=== PATIENT | female | born 1930 | race Caucasian/White ===

== ENCOUNTER 2016-05-28 14:00 | Outpatient (RCR) | payer MEDICARE ==
--- NOTE | 2016-05-22 13:46 | PT/OT/ST INITIAL EVALUATION ---
Department of Health and Human Services Form Approved [facility] Care Financing Administration OMB No. [id number] PLAN OF CARE/ASSESSMENT FOR OUTPATIENT REHABILITATION (Complete for Initial Claims Only) 1. LAST NAME Edvin FIRST NAME Tsering COLMENARES -- 2. ACC # [id number] 3. [facility] [id number] 4. PROVIDER NO. [id number] 5. TYPE: X PT 6. PRIOR THERAPY (Same condition) None 7. PRIMARY DX Right leg sciatica 8. SECONDARY DX Lower extremity weakness 9. ONSET DATE Approximately 1 month ago 10. REFERRAL DATE 05/07/2016 11. SOC. DATE/TIME 05/21/2016 11:00 12. PRIOR LEVEL OF FUNCTION; PERTINENT HISTORY (Prior therapy results, reason for referral.) S: The patient was referred to physical therapy by HILTON Jordan for Dr. Tejada with the diagnosis of right leg sciatica and bilateral hip flexor weakness. The patient reports that she has had an episode a little over a month ago in [place], which she got lightheaded and fainted and passed out. The patient notes that since this incident, she had undergone several tests that have all been negative. She has, however, had some pain at her right hip and leg. The patient describes the pain as sciatic-like pain that travels down the outside of her right hip, lateral knee all the way to her lateral ankle. The patient notes that she has increased pain with prolonged sitting or standing. She has some pain at night that keeps her awake. She has some difficulty getting in and out of a car. Current pain rating: She currently rates the pain to be 8/10. Diagnostic tests: Medical tests have included an MRI and EKG. Relieving factors: The patient does get some relief when using a heating pad. The patient states that she is unable to walk greater than a block and a half. Past medical history includes back surgery in the late 90s. Medication includes Lortab and a prednisone Dosepak. The patient's goal for therapy is to relieve pain. 13. INITIAL ASSESSMENT/SAFETY PRECAUTIONS/MEDICAL COMPLICATIONS (Level of function at start of care. Be specific, use objective measures, list problems.) O: APPEARANCE: The patient is a healthy looking 85-year-old female. She demonstrates slight kyphotic posture with rounded shoulders, decreased lumbar lordosis and mild posterior pelvic tilt. The patient has increased tenderness to palpation at her right glute, piriformis region, and right lateral hip that travels distally along her IT band to lateral knee and calf. RANGE OF MOTION/FLEXIBILITY: Trunk range of motion-flexion 50%, extension 75%, right side bending 70% with pain, left side bending normal limits. Right rotation 50% with pain, left rotation normal limits. Lower extremity flexibility -right hamstring 40 degrees, left 60 degrees. Right single knee to chest and piriformis flexibility were minimally limited. Left were normal limits. STRENGTH: Bilateral hip flexion 4+/5 manual muscle test, right hip abduction 4-/5 manual muscle test. Left 4+/5 manual muscle test. Knee extension 5/5 manual muscle test bilaterally. Knee flexion -right 4/5 manual muscle test, left 5/5 manual muscle test. Ankle dorsiflexion right 4/5 manual muscle test, left 5/5 manual muscle test. TODAY'S TREATMENT: Included initial evaluation followed by instruction of home exercise program for gentle stabilization and postural exercises. The treatment was ended with ultrasound to the patient's right glute piriformis region, and gentle stretching. 14. INITIAL POC: (Specify procedures, modalities, short and watermaster goals) A: The patient presents with muscle tightness and tenderness at right glute piriformis with radicular symptoms. PROGNOSIS: The patient is a good candidate for physical therapy to regain range of motion, flexibility, and strength at right lower extremity. GOALS: 1. The patient to be compliant with home exercise program in 2 weeks. 2. The patient to report 50% decrease in pain and radicular symptoms in 4 weeks. 3. The patient to demonstrate half a muscle grade improvement at right lower extremity in 6 weeks. 4. The patient to demonstrate full trunk range of motion without pain in 6 weeks. 5. The patient to report that she is able to perform normal daily activities and walk without having pain in 8 weeks. PLAN: The patient will be seen 2 times a week over the next 6 weeks. Treatment to include modalities and manual therapy to decrease pain and inflammation. We will progress the patient with range of motion, flexibility, stabilization, and light strengthening activities. We will continue to educate the patient on overall diagnosis and body mechanics when performing activities. 15. FUNCTIONAL LEVEL (End of claim period) 16. PHYSICIAN SIGNATURE ? ON FILE OR ENTER HERE: 17. DATE: I certify the need for these services furnished under this plan of care and if for partial hospitalization. 18. CERTIFICATION FROM THROUGH FORM [facility]-700
[~2016-05-28 14:00] MED LIST: ACET1TAB PO; ACET500C15 PO; APIX5TAB PO; AZAT50TA PO; DIGO125T PO; DULO30CA PO; HYDR-3702 PO; INSU300I SQ; LEVO100T PO; MAGN400T39 PO; NF-ESOM40C PO; OLME1TAB3 PO; OLME1TAB5 PO; PRED5DRO2I OD; TRIM100T PO; VIT B12
== END 2016-07-02 09:14 | disposition home or self-care (01) ==
LOC: PT 14:00
PROVIDERS: ATTEND Family Medicine
DX: M54.31 Sciatica, right side (principal); R29.898 Other symptoms and signs involving the musculoskeletal system
CPT/HCPCS: 97001; 97035; 97110; 97140; G8978; G8979; G8980

== ENCOUNTER 2016-07-28 13:45 | Outpatient (RCR) | payer MEDICARE ==
--- NOTE | 2016-07-15 13:31 | PT/OT/ST INITIAL EVALUATION ---
Department of Health and Human Services Form Approved [facility] Care Financing Administration OMB No. [id number] PLAN OF CARE/ASSESSMENT FOR OUTPATIENT REHABILITATION (Complete for Initial Claims Only) 1. LAST NAME Edvin FIRST NAME Tsering COLMENARES -- 2. ACC # [id number] 3. [facility] [id number] 4. PROVIDER NO. [id number] 5. TYPE: X PT 6. PRIOR THERAPY (Same condition) May 21 to May 28, 2016 7. PRIMARY DX Right leg sciatica 8. SECONDARY DX Hip and leg weakness 9. ONSET DATE Approximately 2-1/2 months ago. 10. REFERRAL DATE 07/10/2016 11. SOC. DATE/TIME 07/14/2016 13:00 12. PRIOR LEVEL OF FUNCTION; PERTINENT HISTORY (Prior therapy results, reason for referral.) S: The patient was referred to physical therapy by HILTON Jordan for Dr. Tejada with the diagnosis of right leg sciatica and lower extremity weakness. The patient reports that she has had this going on for approximately 2-1/2 months. The patient had started therapy in early May, but due to an illness, she discontinued. The patient reports that she had fainted in [place] approximately 3 months ago and it seems like her symptoms began after that. She has undergone several tests. They have all been negative. The patient notes that the pain travels down the outside of her right leg to her lateral knee, all the way down to the outside of her ankle. She does occasionally have symptoms to her left side similar. The patient has increased pain with prolonged sitting or standing. The pain awakes her at night. She has some difficulty getting in and out of a car or up from a low chair. The patient ambulates with a single-point cane for balance and has done this for a few years. Current pain rating is 8/10. Relieving factors: She does get some relief when using a heating pad. Past medical history includes back surgery in the late 90s. Medication includes Lortabs that she occasionally takes. The patient's goal for therapy is to relieve the pain. 13. INITIAL ASSESSMENT/SAFETY PRECAUTIONS/MEDICAL COMPLICATIONS (Level of function at start of care. Be specific, use objective measures, list problems.) O: APPEARANCE: The patient is a healthy looking 86-year-old female. She demonstrates slight kyphotic posture with rounded shoulders, decreased lumbar lordosis and mild posterior pelvic tilt. The patient has scoliotic curve with convexity at right thoracic and convexity at left lumbar region. PALPATION: The patient has tenderness to palpation at her right SI joint, right glute piriformis region, and right lateral hip region that travels distally along her IT band to her lateral knee region. Tenderness is also noted at her left glute, but not as great. ASSESSMENTS: The patient's Modified Oswestry low back score was 58%. RANGE OF MOTION/FLEXIBILITY: Trunk range of motion flexion 50%, extension 75%, right side bending 70% with pain, left side bending normal limits. Right rotation 50% with pain, left rotation normal limits. Lower extremity flexibility right hamstring 40 degrees, left 60 degrees. Right single knee to chest and piriformis flexibility were minimally limited. Left normal limites. STRENGTH: Right hip flexor 4-/5 manual muscle test, left 4+/5 manual muscle test. Right hip abduction 4-/5 manual muscle test, left 4+/5 manual muscle test. Knee extension was 5/5 manual muscle test bilaterally. Knee flexion right 4/5 manual muscle test, left 5/5 manual muscle test. Ankle dorsiflexion right 4/5 manual muscle test, left 5/5 manual muscle test. TODAY'S TREATMENT: Included initial evaluation followed by instruction of home exercise program for gentle stabilization and posture. Treatment also included ultrasound to right lumbosacral region. 14. INITIAL POC: (Specify procedures, modalities, short and lobsterman goals) A: The patient presents with lumbosacral pain with bilateral sciatica, greater on the right than left. PROGNOSIS: The patient is a good candidate for physical therapy to regain flexibility and range of motion, and progress with strengthening and stability. GOALS: 1. The patient to be compliant with home exercise program in 2 weeks. 2. The patient to report 50% decrease in radicular symptoms in 4 weeks. 3. The patient to demonstrate half a muscle grade improvement in lower extremity strength in 6 weeks. 4. The patient to demonstrate 10% decrease in modified Oswestry score in 6 weeks. 5. The patient to report that she is able to perform normal daily activities and walk with 50% less pain in 8 weeks. PLAN: The patient will be seen 2 times a week over the next 6 weeks. Treatment to include modalities and manual therapy to decrease pain and inflammation. We will progress the patient with range of motion, flexibility, stabilization, and light strengthening activities. We will continue to educate the patient on overall diagnosis and body mechanics when performing activities. 15. FUNCTIONAL LEVEL (End of claim period) 16. PHYSICIAN SIGNATURE ? ON FILE OR ENTER HERE: 17. DATE: I certify the need for these services furnished under this plan of care and if for partial hospitalization. 18. CERTIFICATION FROM THROUGH FORM [id number]
[2016-08-04] MEDS ORDERED: POTA99TA16 PO (09:57)
[2016-08-04] MEDS ORDERED: MULT-878 PO (09:57)
[2016-08-04] MEDS ORDERED: ASCO500T20 PO (09:58)
[2016-08-06] MEDS ORDERED: MTP25TSR PO (12:56)
[2016-08-24] MEDS ORDERED: OLME1TAB5 PO (09:32)
[2016-08-24] MEDS ORDERED: MTP25TSR PO (09:32)
[2016-08-24] MEDS ORDERED: TRM50T PO (10:13)
== END 2016-10-12 | disposition home or self-care (01) ==
LOC: PT 13:45
PROVIDERS: ATTEND Physician Assistant Medical
DX: M54.31 Sciatica, right side (principal); R29.898 Other symptoms and signs involving the musculoskeletal system
CPT/HCPCS: 97032; 97035; 97110; 97140; 97161; G8981; G8982

== ENCOUNTER 2016-08-03 11:47 | Observation (INO) | payer MEDICARE ==
[~2016-08-03] VITALS: Ht 170.2 cm; Wt 77.7 kg
[2016-08-03 14:01] LABS: BASOPHILS % (AUTO) 0 % (0-2); EOSINOPHILS # (AUTO) 0.1 10^3uL; EOSINOPHILS % (AUTO) 1 % (0-4); MEAN CORPUSCULAR HGB CONC 33.6 g/dL (31.0-37.0); MEAN PLATELET VOLUME 10.9 FL (6.0-9.5); MONOCYTES # (AUTO) 0.8 X10^3; MONOCYTES % (AUTO) 10 % (3-11); NEUTROPHILS # (AUTO) 5.9 X10^3; NEUTROPHILS % (AUTO) 76 % (51-67); PLATELET COUNT 281 10^3uL (150-450); WHITE BLOOD COUNT 7.81 10^3uL (4.0-11.0)
[2016-08-03 14:02] LABS: MEAN CORPUSCULAR HEMOGLOBIN 34.8 PG (26.0-34.0); MEAN CORPUSCULAR VOLUME 104 FL (80-100)
[2016-08-03 14:13] LABS: ALBUMIN 4.2 g/dL (3.4-5.0); ANION GAP 14.4 MEQ/L (3-15); CALCULATED IONIZED CALCIUM 4.1 mg/dL (3.8-4.6); TOTAL PROTEIN 7.7 g/dL (6.4-8.5)
--- NOTE | 2016-08-03 14:51 | NUR ---
RADIOLOGIST called to report ct of head was negative. was notified.
[2016-08-03 15:32] LABS: BILIRUBIN,URINE Negative (Negative); CLARITY,URINE Clear; COLOR,URINE Yellow; GLUCOSE, URINE (UA) Negative (Negative); LEUKOCYTE ESTERASE ,URINE Trace (Negative); UROBILINOGEN,URINE 0.2 mg/dL (0.2-1.0)
[2016-08-03 15:47] LABS: URINE CENTRIFUGED VOLUME 12 mL
--- NOTE | 2016-08-03 16:07 | NUR ---
NS ASSIST TO WALK PT IN HALLWAY PER DR MARCIAL ORDER. INFORMED PT ASSISTED X 2 TO TOILET APPX 1 HR AGO & ED WANTS PT WALKED FURTHER THAN THAT. CL
--- NOTE | 2016-08-03 16:10 | NUR ---
DR MARCIAL WATCHES PT WALK W/1 NS ASSIST & DOING BETTER THAN EARLIER WHEN UP TO THE TOILET. CL
[2016-08-03] MEDS ORDERED: CIPROFLOXACIN (CIPRO) 500 MG TABLET PO ONE (17:00)
[2016-08-03] MEDS ORDERED: cefTRIAXone SODIUM 1,000 MG in SODIUM CHLORIDE 50 ML IV ONE (17:20)
[2016-08-03] MEDS ORDERED: DOCUSATE SODIUM 100 MG (COLACE) CAP PO PRN (18:10)
[2016-08-03] MEDS ORDERED: PROMETHAZINE HCL INJ 12.5 MG in SODIUM CHLORIDE 25 ML IV PRN (18:10)
[2016-08-03] MEDS ORDERED: DEXTROSE ORAL GEL (GLUTOSE 40%) 15 GM TUBE PO PRN (18:10)
[2016-08-03] MEDS ORDERED: DEXTROSE 50% 25 GM/50 ML SYRINGE IV PRN (18:10)
[2016-08-03] MEDS ORDERED: ONDANSETRON 4 MG (ZOFRAN) ORAL DISSOLVE TAB PO PRN (18:10)
[2016-08-03] MEDS ORDERED: GLUCAGON EMERGENCY 1 MG/KIT IM PRN (18:10)
[2016-08-03] MEDS ORDERED: MAGNESIUM HYDROXIDE 80MG/ML (MILK OF MAGNESIA) 30 ML UDC PO PRN (18:10)
[2016-08-03] MEDS ORDERED: POLYETHYLENE GLYCOL 17 GM (MIRALAX) PACKET PO PRN (18:10)
[2016-08-03] MEDS ORDERED: MAG HYDROX/AL HYDROX/SIMETH 200-200-20/5 ML (MAG-AL PLUS) 30 ML UDC PO PRN (18:10)
[2016-08-03] MEDS ORDERED: CALCIUM CARBONATE CHEWABLE 300 MG (TUMS) TABLET PO PRN (18:10)
--- NOTE | 2016-08-03 18:50 | NUR ---
Arrives to room 314 per cart accompanied by Ambrocio HERRERA and family. Alert and oriented x 4. skin w/p/d. Resp unlabored.
--- NOTE | 2016-08-03 19:10 | NUR ---
Diabetic tray given to patient.
--- NOTE | 2016-08-03 19:27 | NUR ---
Dr. Triana at bedside.
[2016-08-03 19:30] VITALS: BP 205/100
[2016-08-03 19:32] VITALS: BP 205/100
[2016-08-03] MEDS ORDERED: SODIUM CHLORIDE FLUSH 10 ML ONE (20:58)
[2016-08-03] MEDS: INSULIN LISPRO 1 UNIT/0.01 ML (HUMALOG) DOSE SC SCH (21:00)
--- NOTE | 2016-08-03 21:00 | NUR ---
Assisted to the bathroom. Patient is weak. Has ecchymotic area on bilateral knees. Has weakness in left knee > than right. Returned to bed. Bed alarm placed on. IV all infused and dc'd. SL patent and intact. Patient does use call light when she has to go to the bathroom. Bed alarm on.
[2016-08-03] MEDS: APIXABAN 2.5 MG (ELIQUIS) TABLET PO SCH (21:55)
[2016-08-03] MEDS: INSULIN GLARGINE 1 UNIT/0.01ML (LANTUS) DOSE SC SCH (21:56)
[2016-08-03] MEDS: ACETAMINOPHEN 325 MG TAB (TYLENOL) PO PRN (22:32)
[2016-08-03] MEDS: azaTHIOprine (IMURAN) 50 MG TAB PO SCH (22:33)
--- NOTE | 2016-08-03 22:41 | NUR ---
Requests tylenol for body aches. Tylenol given.
[2016-08-03 23:57] VITALS: BP 209/105
[2016-08-04] VITALS (8 sets, daily range): BP systolic 157–209; BP diastolic 68–105
--- NOTE | 2016-08-04 | NUR ---
Patient assisted to bathroom again. Voiding without difficulty. Remains alert, yet forgetful at times. States still has some soreness in left knee. Tylenol given at HS for knee discomfort. Call light within reach. Bed alarm on.
[2016-08-04] MEDS: ACETAMINOPHEN 325 MG TAB (TYLENOL) PO PRN ×2 (04:04→09:42)
[2016-08-04 06:23] LABS: BASOPHILS % (AUTO) 0 % (0-2); EOSINOPHILS # (AUTO) 0.1 10^3uL; EOSINOPHILS % (AUTO) 1 % (0-4); LYMPHOCYTES # (AUTO) 1.1 X10^3; MEAN CORPUSCULAR HGB CONC 33.4 g/dL (31.0-37.0); MONOCYTES # (AUTO) 0.8 X10^3; MONOCYTES % (AUTO) 11 % (3-11); NEUTROPHILS # (AUTO) 5.6 X10^3; NEUTROPHILS % (AUTO) 74 % (51-67); PLATELET COUNT 259 10^3uL (150-450); WHITE BLOOD COUNT 7.63 10^3uL (4.0-11.0)
[2016-08-04] MEDS: LEVOTHYROXINE 100 MCG (LEVOTHROID) TABLET PO SCH (06:23)
[2016-08-04 06:34] LABS: ALBUMIN 3.6 g/dL (3.4-5.0); MEAN CORPUSCULAR HEMOGLOBIN 34.5 PG (26.0-34.0); MEAN CORPUSCULAR VOLUME 103 FL (80-100); PHOSPHORUS 4.2 mg/dL (2.4-4.9)
[2016-08-04] MEDS: INSULIN LISPRO 1 UNIT/0.01 ML (HUMALOG) DOSE SC SCH ×4 (06:44→20:40)
--- NOTE | 2016-08-04 06:45 | NUR ---
Patient rested well tonight. Tylenol administered at 0415 for left knee discomfort. When ambulating to the bathroom has discomfort in left knee. Patient pleasant and cooperative with cares. Call light within reach.
[2016-08-04] MEDS ORDERED: SODIUM CHLORIDE FLUSH 10 ML ONE (08:28)
--- NOTE | 2016-08-04 08:30 | NUR ---
Patient's a.m. BP is high again. Gave Hydralazine 20 mg. IV. Will recheck.
[2016-08-04] MEDS: hydrALAZINE 20 MG/ML (APRESOLINE) 1 ML VIAL IV PRN ×2 (08:31→13:14)
[2016-08-04] MEDS: NS FLUSH 10 ML PRN IV ×2 (08:40→13:15)
[2016-08-04] MEDS ORDERED: NS FLUSH 3 ML PRN IV (08:45)
[2016-08-04] MEDS ORDERED: HYDROCHLOROTHIAZIDE 25 MG (HCTZ) TAB PO SCH (09:00)
[2016-08-04] MEDS: NS FLUSH 3 ML DAILY IV SCH (09:00)
[2016-08-04] MEDS ORDERED: LOSARTAN 50 MG (COZAAR) TABLET PO SCH (09:00)
--- NOTE | 2016-08-04 09:20 | NUR ---
BP= 172/80.
--- NOTE | 2016-08-04 09:25 | NUR ---
Doctor has increased oral BP medications for this morning. Will continue to monitor.
[2016-08-04] MEDS: APIXABAN 2.5 MG (ELIQUIS) TABLET PO SCH ×2 (09:41→20:31)
[2016-08-04] MEDS: DULoxetine 30 MG (CYMBALTA) CAPSULE PO SCH (09:41)
[2016-08-04] MEDS: azaTHIOprine (IMURAN) 50 MG TAB PO SCH ×2 (09:42→20:31)
[2016-08-04] MEDS: PANTOPRAZOLE 40 MG (PROTONIX) TAB PO SCH (09:42)
[2016-08-04] MEDS: DIGOXIN 0.125 MG (LANOXIN) TAB PO SCH (09:42)
[2016-08-04] MEDS: HYDROCHLOROTHIAZIDE 25 MG (HCTZ) TAB PO SCH (09:49)
[2016-08-04] MEDS: LOSARTAN 50 MG (COZAAR) TABLET PO SCH (09:51)
--- NOTE | 2016-08-04 10:03 | NUR ---
Med Rec completed via list from Dr. Lopez office and conversation with patient and caregiver.
--- NOTE | 2016-08-04 10:40 | NUR ---
Patient has gone to radiology for x-rays of bilateral knees. She reports two falls at home in the past few weeks.
--- NOTE | 2016-08-04 14:00 | NUR ---
Discussed PRN BP medication with the patient and her daughter. they feel her anxiety may be caused by the Hydralazine she's received twice today. I discussed this with Dr. Triana and the decision was made to DC this med.
[2016-08-04] MEDS: LORazepam 0.5 MG (ATIVAN) TABLET PO PRN ×2 (15:10→21:27)
--- NOTE | 2016-08-04 15:10 | NUR ---
Gave 0.5 mg. Ativan PO for anxiety. Will continue to monitor.
[2016-08-04] MEDS ORDERED: CIPROFLOXACIN (CIPRO) 500 MG TABLET PO ONE (17:00)
[2016-08-04] MEDS ORDERED: SODIUM CHLORIDE 100 ML ONE (18:26)
[2016-08-04] MEDS: cefTRIAXone SODIUM 1,000 MG in SODIUM CHLORIDE 50 ML IV SCH (18:28)
--- NOTE | 2016-08-04 19:29 | NUR ---
Patient's anxiety is not gone but has improved with PRN medication. Family have remained at the bedside through the day.
[2016-08-04] MEDS: INSULIN GLARGINE 1 UNIT/0.01ML (LANTUS) DOSE SC SCH (20:39)
[2016-08-05] VITALS: BP 165/66
[2016-08-05 04:10] VITALS: BP 140/70
[2016-08-05] MEDS: LEVOTHYROXINE 100 MCG (LEVOTHROID) TABLET PO SCH (06:18)
--- NOTE | 2016-08-05 06:22 | NUR ---
Patient has reported some anxiety through the night, relieved by Ativan. States that she slept better tonight but was bothered by accidentally setting TABS alarm off. 1 assist throughout night, this AM seems a little more unsteady than previous and required 2 assistance for safety. No reports of pain, no needs at this time.
[2016-08-05] MEDS: INSULIN LISPRO 1 UNIT/0.01 ML (HUMALOG) DOSE SC SCH ×4 (07:26→20:48)
[2016-08-05 08:00] VITALS: BP 152/92
--- NOTE | 2016-08-05 08:32 | NUR ---
NUTRITION ASSESSMENT Level 1 Patient: Tsering Pardo Age/Sex: 86/F Date Screened: [birth year]17 Weight: 170.9#/77.7 kg Height: 68 inches Primary Diagnosis: UTI Diet Order: medium diabetic Relevant labs: Hgb A1c 6.4, TSH 5.44 Food allergies: N Nutrition Assessment Criteria Age over 80: 4 points Body Mass Index (BMI) under 19: N Admission Screening Indicates Risk? N Moderate/High Risk Diagnosis: N TPN or PPN: N NPO or clear liquid diet: N Serum Glucose <70 or >180: N/A Hgb A1c >6.7: N Total: 4 points Risk Screen: __ Patient at low nutritional risk based on available data; reevaluate in 5-7 days _X_ Patient at moderate nutritional risk based on available data; reevaluate in 3-5 days __ Patient at high nutritional risk; complete Nutrition Assessment within 48 hours of admission. Comments: Weight has been stable; pt. intentionally lost weight after diabetes dx. in 2014 (weighed 183# in October 2014, 173# in December 2014, and maintained it at 173# in 2015). Eating well at 100%. Noted height was entered incorrectly in EMR; should be 68 inches. Will reassess as documented above.
[2016-08-05] MEDS: PANTOPRAZOLE 40 MG (PROTONIX) TAB PO SCH (08:47)
[2016-08-05] MEDS: DIGOXIN 0.125 MG (LANOXIN) TAB PO SCH (08:47)
[2016-08-05] MEDS: ACETAMINOPHEN 325 MG TAB (TYLENOL) PO PRN ×3 (08:47→19:52)
[2016-08-05] MEDS: DULoxetine 30 MG (CYMBALTA) CAPSULE PO SCH (08:47)
[2016-08-05] MEDS: APIXABAN 2.5 MG (ELIQUIS) TABLET PO SCH ×2 (08:47→20:55)
[2016-08-05] MEDS: azaTHIOprine (IMURAN) 50 MG TAB PO SCH ×2 (08:48→20:55)
[2016-08-05] MEDS: LOSARTAN 50 MG (COZAAR) TABLET PO SCH (08:48)
[2016-08-05] MEDS: NS FLUSH 3 ML DAILY IV SCH (08:49)
[2016-08-05] MEDS: HYDROCHLOROTHIAZIDE 25 MG (HCTZ) TAB PO SCH (08:49)
[2016-08-05] MEDS ORDERED: MAGNESIUM OXIDE 400 MG (MAG-OX) TAB PO SCH (09:00)
--- NOTE | 2016-08-05 10:54 | NUR ---
Presented the [employer] form to Pt. and her daughter in law. Pt. verbalized understanding and signed the form. A copy was given to the Pt. and the original was placed in the chart. Pt. reported she lives at home alone. She is open to home health services and also open to assisted living. Pt. daughter in law was not aware Pt. was open to assisted living. She stated Pt. would prefer to be hoe is she is able to manage at home. SW also discussed respite care at a facility and private caregiving agencies. A list of home health agencies and assisted living facilities was provided to Pt. SW asked them to let SW know if they have any questions.
[2016-08-05 12:00] VITALS: BP 168/88
[2016-08-05 16:00] VITALS: BP 162/98
--- NOTE | 2016-08-05 16:06 | NUR ---
Dr. Tinoco notified of BP which is trending up.
[2016-08-05] MEDS ORDERED: meTOprolol TARTRATE 25 MG (LOPRESSOR) TABLET PO ONE (16:10)
--- NOTE | 2016-08-05 16:15 | NUR ---
Tylenol given for knee pain.
[2016-08-05] MEDS: cefTRIAXone SODIUM 1,000 MG in SODIUM CHLORIDE 50 ML IV SCH (17:37)
[2016-08-05 19:47] VITALS: BP 142/82
--- NOTE | 2016-08-05 19:52 | NUR ---
Resting in bed. Having pain in left knee. States that physical therapy worked with her today and knee is more sore. Tylenol 650 mg administered for pain. Assisted patient to the bathroom, using gait belt. Patient uses walker and assist of two. Follows commands well, but appears much weaker than she was a few days ago. Acts as if knee is going to give out. Encouragement given numerous times. Skin warm and dry. Color pale. Daughter in room. Bed alarm on for safety.
[2016-08-05] MEDS: LORazepam 0.5 MG (ATIVAN) TABLET PO PRN (20:55)
[2016-08-05] MEDS: INSULIN GLARGINE 1 UNIT/0.01ML (LANTUS) DOSE SC SCH (20:56)
[2016-08-06 01:01] VITALS: BP 152/89
[2016-08-06] MEDS ORDERED: LORazepam 2 MG/ML (ATIVAN) 1 ML VIAL IV PRN (01:35)
[2016-08-06 06:11] LABS: BASOPHILS % (AUTO) 0 % (0-2); EOSINOPHILS # (AUTO) 0.1 10^3uL; EOSINOPHILS % (AUTO) 1 % (0-4); LYMPHOCYTES # (AUTO) 0.9 X10^3; MEAN CORPUSCULAR HGB CONC 34.4 g/dL (31.0-37.0); MEAN PLATELET VOLUME 10.9 FL (6.0-9.5); MONOCYTES # (AUTO) 0.9 X10^3; MONOCYTES % (AUTO) 11 % (3-11); NEUTROPHILS # (AUTO) 5.9 X10^3; NEUTROPHILS % (AUTO) 76 % (51-67); PLATELET COUNT 264 10^3uL (150-450); WHITE BLOOD COUNT 7.79 10^3uL (4.0-11.0)
[2016-08-06 06:17] LABS: MEAN CORPUSCULAR HEMOGLOBIN 35.2 PG (26.0-34.0); MEAN CORPUSCULAR VOLUME 102 FL (80-100)
[2016-08-06] MEDS: LEVOTHYROXINE 100 MCG (LEVOTHROID) TABLET PO SCH (06:29)
[2016-08-06] MEDS: INSULIN LISPRO 1 UNIT/0.01 ML (HUMALOG) DOSE SC SCH ×2 (06:30→11:30)
--- NOTE | 2016-08-06 06:30 | NUR ---
Patient rested at short intervals tonight. Try's to get out of bed by herself and sets alarms off. Is unsteady. When ambulating with the walker she acts like she is going to fall. Patient has weakness in the left knee, and when ambulating short distances, needs constant reminders to keep walking and to look up and watch where she is trying to go. Gait belt used every time patient has been ambulating. Again, appears weaker today, then she did a few days ago. bed alarm for safety. Tabs alarm also. Call light within reach, yet she does not always use it.
[2016-08-06 06:52] LABS: ALBUMIN 4.1 g/dL (3.4-5.0); ANION GAP 15.1 MEQ/L (3-15); MAGNESIUM* 1.8 mg/dL (1.6-2.3); PHOSPHORUS 4.5 mg/dL (2.4-4.9)
[2016-08-06 07:21] VITALS: BP 184/105
--- NOTE | 2016-08-06 08:07 | NUR ---
Visited with Pt. daughter, Deedee, by phone. She stated they are planning for Pt. to return home with home health services through [employer]. She would like them to help Pt. with her ADL's and provide PT. Deedee reported family is also looking into a company similar to [employer] to provide services to Pt. Deedee has also contacted [employer] and they may be able to add her to their route in the meantime family will help Pt. with meals. They have a neighbor of Pt. they may have check in on Pt. at home as well as family will check on her daily. ESEQUIEL reviewed other resources available to them if they were interested such as paying out of pocket for skilled care, respite care at an assisted living facility, transitioning to assisted living and private caregivers. ESEQUIEL asked Deedee to let ESEQUIEL know if any of these plans changed and if not then ESEQUIEL would help set up home health services upon discharge.
[2016-08-06 08:31] VITALS: BP 180/80
[2016-08-06] MEDS ORDERED: meTOprolol TARTRATE 25 MG (LOPRESSOR) TABLET PO ONE (09:25)
[2016-08-06] MEDS: ACETAMINOPHEN 325 MG TAB (TYLENOL) PO PRN (10:26)
[2016-08-06] MEDS: HYDROCHLOROTHIAZIDE 25 MG (HCTZ) TAB PO SCH (10:27)
[2016-08-06] MEDS: DIGOXIN 0.125 MG (LANOXIN) TAB PO SCH (10:27)
[2016-08-06] MEDS: azaTHIOprine (IMURAN) 50 MG TAB PO SCH (10:27)
[2016-08-06] MEDS: PANTOPRAZOLE 40 MG (PROTONIX) TAB PO SCH (10:27)
[2016-08-06] MEDS: APIXABAN 2.5 MG (ELIQUIS) TABLET PO SCH (10:27)
[2016-08-06] MEDS: LOSARTAN 50 MG (COZAAR) TABLET PO SCH (10:28)
[2016-08-06] MEDS: DULoxetine 30 MG (CYMBALTA) CAPSULE PO SCH (10:28)
[2016-08-06] MEDS: NS FLUSH 3 ML DAILY IV SCH (10:28)
[2016-08-06 11:50] VITALS: BP 150/80
--- NOTE | 2016-08-06 14:58 | NUR ---
DISCHARGE INSTRUCTIONS GIVEN TO PATIENT AND HER DAUGHTER. QUESTIONS ANSWERED. PHARMACY SPOKE WITH THEM ABOUT NEW MED. DAUGHTER STATES [facility] ARE READY FOR PATIENT. NO FURTHER QUESTIONS.
--- NOTE | 2016-08-06 15:20 | NUR ---
DISMISSED PER W/C ACCOMPANIED BY FAMILY AND NAOMY DO. ALERT AND ORIENTED X4, SKIN W/P/D, RESP REG AND UNLABORED.
== END 2016-08-06 15:20 | disposition home or self-care (01) ==
LOC: ED 11:50 → MED/SURG 17:01
PROVIDERS: ADMIT Internal Medicine; ATTEND Internal Medicine
DX: N39.0 Urinary tract infection, site not specified (principal); S06.0X0A Concussion without loss of consciousness, initial encounter; E86.0 Dehydration; E03.9 Hypothyroidism, unspecified; E11.9 Type 2 diabetes mellitus without complications; I48.91 Unspecified atrial fibrillation; G89.29 Other chronic pain; S80.02XA Contusion of left knee, initial encounter; S80.01XA Contusion of right knee, initial encounter; E11.22 Type 2 diabetes mellitus with diabetic chronic kidney disease; I12.9 Hypertensive chronic kidney disease with stage 1 through stage 4 chronic kidney disease, or unspecified chronic kidney disease; N18.9 Chronic kidney disease, unspecified; W18.2XXA Fall in (into) shower or empty bathtub, initial encounter; Z91.81 History of falling
CPT/HCPCS: 36415; 70450; 71020; 73564; 80053; 80069; 81003; 81015; 82550; 83036; 83735; 84443; 85025; 85610; 85730; 87077; 87088; 87186; 96361; 96366; 96374; 96375; 96376; 97110; 97116; 97166; 99285; A9270; G0378; G8987; G8988; J0360; J0696; J1815; J7030; J7500; 99218; 99284

== ENCOUNTER → 2016-08-03 | Outpatient (CLI) | payer MEDICARE | LOC: EMS 11:45 | PROVIDERS: ATTEND Emergency Medicine | DX: R53.1 Weakness (principal); R29.6 Repeated falls ==

== ENCOUNTER 2016-08-23 16:09 | Observation (INO) | payer MEDICARE ==
[~2016-08-23] VITALS: Ht 170.2 cm; Wt 76.9 kg
--- NOTE | 2016-08-23 18:00 | NUR ---
Patient is weak and ataxic when up to toilet. Requires assistance x1.
--- NOTE | 2016-08-23 18:00 | NUR ---
Called [facility] and requested to have the cutting and boning supervisor DrKaur Ryan paged.
--- NOTE | 2016-08-23 18:25 | NUR ---
Called [facility], asked to have paged again
--- NOTE | 2016-08-23 18:33 | NUR ---
Dr Kelley returns call, on phone with Dr. Carson.
[2016-08-23] MEDS ORDERED: ACETAMINOPHEN 500 MG TAB (TYLENOL) PO ONE (18:55)
[2016-08-23 19:38] LABS: BASOPHILS % (AUTO) 0 % (0-2); EOSINOPHILS % (AUTO) 0 % (0-4); LYMPHOCYTES # (AUTO) 1.1 X10^3; MEAN CORPUSCULAR HGB CONC 34.2 g/dL (31.0-37.0); MEAN PLATELET VOLUME 11.3 FL (6.0-9.5); MONOCYTES % (AUTO) 8 % (3-11); NEUTROPHILS # (AUTO) 10.5 X10^3; NEUTROPHILS % (AUTO) 83 % (51-67); PLATELET COUNT 235 10^3uL (150-450); WHITE BLOOD COUNT 12.63 10^3uL (4.0-11.0)
[2016-08-23 19:42] LABS: MEAN CORPUSCULAR HEMOGLOBIN 34.7 PG (26.0-34.0); MEAN CORPUSCULAR VOLUME 101 FL (80-100)
[2016-08-23 19:44] LABS: ALBUMIN 4.1 g/dL (3.4-5.0); ANION GAP 14.5 MEQ/L (3-15); CALCULATED IONIZED CALCIUM 4.1 mg/dL (3.8-4.6); TOTAL PROTEIN 7.6 g/dL (6.4-8.5)
--- NOTE | 2016-08-23 20:15 | NUR ---
Patient arrives to floor and walks with one assistance to bed and bathroom. Reports that hand is throbbing but states that her pain is controlled with the tylenol she took prior to coming to the floor. See admission assessment part 1 and 2. Will continue to monitor.
[2016-08-23 20:38] VITALS: BP 122/76
[2016-08-23] MEDS ORDERED: ONDANSETRON 4 MG (ZOFRAN) ORAL DISSOLVE TAB PO PRN (20:45)
[2016-08-23] MEDS ORDERED: ACETAMINOPHEN 325 MG TAB (TYLENOL) PO PRN (20:45)
[2016-08-23] MEDS ORDERED: ACETAMINOPHEN/DIPHENHYDRAMINE 500/25 MG (TYLENOL PM) TABLET PO PRN (20:55)
[2016-08-23] MEDS ORDERED: APIXABAN 5 MG PO SCH (21:00)
[2016-08-23 21:04] VITALS: BP 122/76
[2016-08-23] MEDS ORDERED: LORazepam 0.5 MG (ATIVAN) TABLET PO PRN (21:10)
[2016-08-23] MEDS ORDERED: APIXABAN 2.5 MG (ELIQUIS) TABLET PO ONE (21:56)
[2016-08-23] MEDS: FAMOTIDINE 20 MG (PEPCID) TABLET PO SCH (22:06)
[2016-08-23] MEDS ORDERED: INSULIN GLARGINE 1 UNIT/0.01ML (LANTUS) DOSE SC ONE (22:33)
[2016-08-23 23:44] VITALS: BP 137/71
[2016-08-24 03:16] LABS: BILIRUBIN,URINE Negative (Negative); CLARITY,URINE Clear; COLOR,URINE Yellow; GLUCOSE, URINE (UA) Negative (Negative); LEUKOCYTE ESTERASE ,URINE 1+ (Negative); UROBILINOGEN,URINE 0.2 mg/dL (0.2-1.0)
[2016-08-24 03:53] LABS: RBC,URINE 0-2 /HPF; URINE CENTRIFUGED VOLUME 12 mL
--- NOTE | 2016-08-24 06:15 | NUR ---
Patient resting in bed with eyes closed at this time. No needs at this time.
--- NOTE | 2016-08-24 07:40 | NUR ---
Patient resting in bed upon shift assessment. Arouses easily to verbal stimuli. Alert and oriented X3. Neuro check WNL. Patient reports right wrist/hand pain rated 6/10 on pain scale. PRN Ultram provided. Right wrist with trace edema noted. Denies headache, blurred vision, or SOA. Ambulates to chair for breakfast with standby assist, steady gate. HR irregular. Lung sounds CTAB. Updated on plan of care for shift including use of ice and pain medication for pain management. Call light in reach.
[2016-08-24 07:57] VITALS: BP 109/63
[2016-08-24] MEDS: FAMOTIDINE 20 MG (PEPCID) TABLET PO SCH (08:36)
[2016-08-24] MEDS ORDERED: APIXABAN 2.5 MG (ELIQUIS) TABLET PO SCH (09:35)
--- NOTE | 2016-08-24 09:44 | NUR ---
MED REC COMPLETE--current med list obtained from external med history application and discharge med list from patient's previous admission (08/03/16-08/06/16).
--- NOTE | 2016-08-24 10:18 | NUR ---
Visited with Pt. and her daughter, Fuentes. Explained that Pt. has been admitted as observation and therefore would not be eligible for skilled care. Fuentes explained Pt. has been home for a few days and has been doing well. They have a family friend that checks in on her during the day, [employer] and home health services for Pt. ESEQUIEL explained they could go home and continue with these services, they could return to [facility] for continued respite care or they could get skilled care but this would be an out of pocket expense. Fuentes thanked ESEQUIEL for the information and stated they would discuss these options.
--- NOTE | 2016-08-24 12:17 | NUR ---
Pt. felt to be unsafe to return home. Deedee would like Pt. to go back to [facility] for further respite care. [facility] came to assess Pt. and are okay admitting Pt. to their facility. They will obtain orders from Dr. Lopez's office and let SW know when they have these orders and Pt. will be okay to be discharged to their facility.
--- NOTE | 2016-08-24 14:58 | NUR ---
Discharge counseling complete--reviewed new medications with patient and patient's daughter. Supplied patient with list.
--- NOTE | 2016-08-24 15:02 | NUR ---
Discharge order received. NO IV access noted. Instructions provided to patient and daughter with verbal and written understanding expressed. Dismissed via wheelchair to private car. No further needs.
[2016-08-24] MEDS ORDERED: INSULIN GLARGINE 1 UNIT/0.01ML (LANTUS) DOSE SC SCH (21:00)
== END 2016-08-24 15:00 | disposition home or self-care (01) ==
LOC: ED 16:11 → MED/SURG 19:12
PROVIDERS: ADMIT Internal Medicine; ATTEND Internal Medicine
DX: S52.501A Unspecified fracture of the lower end of right radius, initial encounter for closed fracture (principal); R53.1 Weakness; I10 Essential (primary) hypertension; E11.9 Type 2 diabetes mellitus without complications; I48.91 Unspecified atrial fibrillation; M79.7 Fibromyalgia; M19.90 Unspecified osteoarthritis, unspecified site; Z79.82 Long term (current) use of aspirin; Z79.02 Long term (current) use of antithrombotics/antiplatelets; Z79.4 Long term (current) use of insulin; Z91.81 History of falling; W01.198A Fall on same level from slipping, tripping and stumbling with subsequent striking against other object, initial encounter
CPT/HCPCS: 36415; 70450; 73110; 80053; 80162; 81003; 81015; 85025; 87088; 99284; A9270; L3908; 87077; 87186; 99218; 99283

== ENCOUNTER → 2016-08-23 | Outpatient (CLI) | payer MEDICARE | LOC: EMS 16:08 | PROVIDERS: ATTEND Emergency Medicine | DX: M25.531 Pain in right wrist (principal); W01.198A Fall on same level from slipping, tripping and stumbling with subsequent striking against other object, initial encounter; Y93.E5 Activity, floor mopping and cleaning; Y92.000 Kitchen of unspecified non-institutional (private) residence as the place of occurrence of the external cause ==

== ENCOUNTER → 2016-08-25 | Outpatient (REF) | payer MEDICARE ==
[2016-08-25 14:21] LABS: BILIRUBIN,URINE Negative (Negative); CLARITY,URINE Cloudy; COLOR,URINE Yellow; GLUCOSE, URINE (UA) Negative (Negative); LEUKOCYTE ESTERASE ,URINE Trace (Negative); PH,URINE 5.5 (5.0 - 8.0); UROBILINOGEN,URINE 0.2 mg/dL (0.2-1.0)
[2016-08-25 14:22] LABS: URINE CENTRIFUGED VOLUME 12 mL
[2016-08-25 14:26] LABS: RBC,URINE 0-2 /HPF
== END ==
LOC: LAB 13:57
PROVIDERS: ATTEND Family Medicine
DX: R41.0 Disorientation, unspecified (principal)
CPT/HCPCS: 81003; 81015

== ENCOUNTER → 2016-08-27 | Outpatient (CLI) | payer MEDICARE | LOC: RAD 11:01 | PROVIDERS: ATTEND Nurse Practitioner | DX: S62.101A Fracture of unspecified carpal bone, right wrist, initial encounter for closed fracture (principal); X58.XXXA Exposure to other specified factors, initial encounter | CPT/HCPCS: 73100 ==

== ENCOUNTER → 2016-09-15 | Outpatient (REF) | payer MEDICARE ==
[~2016-09-15] MED LIST changes: +ASCO500T20 PO; +MTP25TSR PO; +MULT-878 PO; +POTA99TA16 PO; +TRM50T PO
[2016-09-15 11:40] LABS: BILIRUBIN,URINE Negative (Negative); CLARITY,URINE Turbid; COLOR,URINE Yellow; GLUCOSE, URINE (UA) Negative (Negative); LEUKOCYTE ESTERASE ,URINE 3+ (Negative); UROBILINOGEN,URINE 0.2 mg/dL (0.2-1.0)
[2016-09-15 13:09] LABS: RBC,URINE 50-100 /HPF; URINE CENTRIFUGED VOLUME 12 mL
== END ==
LOC: LAB 11:29
PROVIDERS: ATTEND Family Medicine
DX: R30.0 Dysuria (principal); R82.99 Other abnormal findings in urine
CPT/HCPCS: 81003; 81015; 87077; 87088; 87186

== ENCOUNTER → 2016-09-25 | Outpatient (REF) | payer MEDICARE ==
[2016-09-25 08:49] LABS: BILIRUBIN,URINE Negative (Negative); CLARITY,URINE Clear; COLOR,URINE Yellow; GLUCOSE, URINE (UA) Negative (Negative); LEUKOCYTE ESTERASE ,URINE Negative (Negative); UROBILINOGEN,URINE 0.2 mg/dL (0.2-1.0)
== END ==
LOC: LAB 08:20
PROVIDERS: ATTEND Family Medicine
DX: N39.0 Urinary tract infection, site not specified (principal)
CPT/HCPCS: 81003

== ENCOUNTER 2016-10-07 12:57 | Emergency (ER) | payer MEDICARE ==
[~2016-10-07] VITALS: Ht 170.2 cm; Wt 177.0 kg
--- NOTE | 2016-10-07 13:55 | NUR ---
[facility] STAFF BACK TO TO TALK WITH DAUGHTER OF PT. THEY STATE WITNESSED FALL. PT HAD PUT WALKER DOWN OFF OF CURB, TURNED TO WARN OTHERS OF CURB & STRONG WIND CAME UP CATCHING WALKER & PT CAUSING PT TO SIT DOWN TO CURB/CONCRETE GENTLY & TO PT RT SIDE. PT WAS SEEN HOLDING HER HEAD UP WHEN SHE WENT DOWN NOT STRIKING EITHER HEAD OR BACK. CL
--- NOTE | 2016-10-07 14:06 | NUR ---
PT GLASSES TO [facility] WITH STAFF & ALSO HER WALKER. CL
--- NOTE | 2016-10-07 14:26 | Diagnostic Imaging Report ---
PROCEDURE: CT thoracic spine without contrast. TECHNIQUE: Multiple axial computerized tomography images were obtained from the base of the thoracic spine to the vertex without intravenous contrast. INDICATION: Patient fell 2-3 hours ago, complaining of mid back pain. COMPARISON STUDY: Plain films of the chest from July. FINDINGS: Mild scoliosis and osteopenia are present. There are no fractures or subluxations. No stenosis is identified. The surrounding soft tissues appear normal. Arteriosclerosis is present. Visualized portions of the ribs appear normal. The visualized portions of the lungs are clear. IMPRESSION: There are no acute findings. Dictated by: Dictated on workstation # [id number]
--- NOTE | 2016-10-07 15:18 | NUR ---
PT DAUGHTER STATES SHE WILL HAVE TO GO GET PT A NEW HEATING PAD & TAKE IT TO CARE FACILITY. FACILITY STAFF STATED THEY WILL ASSIST PT DAUGHTER IN GETTING PT OUT OF FAMILY VEHICLE & INTO FACILITY UPON ARRIVAL. CL
[2016-10-07 20:40] VITALS: BP 132/70
== END 2016-10-07 15:35 | disposition home or self-care (01) ==
LOC: EDUNIT# 12:57 → ED 12:59
DX: G89.11 Acute pain due to trauma (principal); M54.6 Pain in thoracic spine; W10.1XXA Fall (on)(from) sidewalk curb, initial encounter; Z91.81 History of falling; Y92.511 Restaurant or cafe as the place of occurrence of the external cause; Y99.8 Other external cause status
CPT/HCPCS: 72128; 99282; 99283

== ENCOUNTER → 2016-10-07 | Outpatient (CLI) | payer MEDICARE | LOC: EMS 12:48 | PROVIDERS: ATTEND Emergency Medicine | DX: Z04.3 Encounter for examination and observation following other accident (principal); W10.8XXA Fall (on) (from) other stairs and steps, initial encounter; Y92.511 Restaurant or cafe as the place of occurrence of the external cause ==

== ENCOUNTER → 2016-10-15 | Outpatient (REF) | payer MEDICARE ==
[2016-10-15 16:19] LABS: BILIRUBIN,URINE Negative (Negative); CLARITY,URINE Cloudy; COLOR,URINE Yellow; GLUCOSE, URINE (UA) Negative (Negative); LEUKOCYTE ESTERASE ,URINE 2+ (Negative); UROBILINOGEN,URINE 0.2 mg/dL (0.2-1.0)
[2016-10-15 16:26] LABS: URINE CENTRIFUGED VOLUME 12 mL
== END ==
LOC: LAB 15:45
PROVIDERS: ATTEND Family Medicine
DX: R82.99 Other abnormal findings in urine (principal)
CPT/HCPCS: 81003; 81015; 87088

== ENCOUNTER → 2016-10-19 | Outpatient (CLI) | payer MEDICARE | LOC: EMS 08:34 | DX: Z53.20 Procedure and treatment not carried out because of patient's decision for unspecified reasons (principal) ==

== ENCOUNTER 2016-10-28 02:36 | Inpatient (IN) | payer MEDICARE ==
[~2016-10-28] VITALS: Ht 170.2 cm; Wt 79.8 kg
[2016-10-28] VITALS (7 sets, daily range): BP systolic 155–188; BP diastolic 87–97
[~2016-10-28 02:36] MED LIST changes: -AC325T PO; -AMOX-358 PO; -ASP81CT PO; -BSC10SU PR; -DOCU100C8 PO; -HYDR12.56 PO; -LEVO125T70 PO; -OLME1TAB42 PO; -ONDAN4ODT PO; -POLY17PO2 PO
[2016-10-28] MEDS ORDERED: SODIUM CHLORIDE FLUSH 3 ML SYR IV PRN (02:55)
[2016-10-28] MEDS ORDERED: SODIUM CHLORIDE FLUSH 10 ML SYR IV PRN (02:55)
[2016-10-28 03:42] LABS: MEAN CORPUSCULAR HEMOGLOBIN 35.3 PG (26.0-34.0); MEAN CORPUSCULAR VOLUME 106 FL (80-100)
[2016-10-28 03:43] LABS: BASOPHILS % (AUTO) 0 % (0-2); EOSINOPHILS % (AUTO) 1 % (0-4); LYMPHOCYTES # (AUTO) 1.2 X10^3; MEAN CORPUSCULAR HGB CONC 33.2 g/dL (31.0-37.0); MEAN PLATELET VOLUME 10.8 FL (6.0-9.5); MONOCYTES # (AUTO) 0.8 X10^3; MONOCYTES % (AUTO) 11 % (3-11); NEUTROPHILS # (AUTO) 5.4 X10^3; NEUTROPHILS % (AUTO) 71 % (51-67); PLATELET COUNT 289 10^3uL (150-450)
[2016-10-28 03:44] LABS: EOSINOPHILS # (AUTO) 0.1 10^3uL
[2016-10-28 03:45] LABS: BILIRUBIN,URINE Negative (Negative); CLARITY,URINE Clear; COLOR,URINE Yellow; GLUCOSE, URINE (UA) Negative (Negative); LEUKOCYTE ESTERASE ,URINE 1+ (Negative); UROBILINOGEN,URINE 0.2 mg/dL (0.2-1.0)
[2016-10-28 03:49] LABS: ANION GAP 11.9 MEQ/L (3-15)
[2016-10-28 03:50] LABS: ALBUMIN 3.9 g/dL (3.4-5.0); CALCULATED IONIZED CALCIUM 4.2 mg/dL (3.8-4.6); TOTAL PROTEIN 7.3 g/dL (6.4-8.5)
[2016-10-28 03:57] LABS: URINE CENTRIFUGED VOLUME 12 mL
[2016-10-28 04:00] LABS: RBC,URINE 0-2 /HPF
[2016-10-28 04:34] LABS: CLARITY,URINE Clear; COLOR,URINE Yellow
[2016-10-28 04:35] LABS: BILIRUBIN,URINE Negative (Negative); GLUCOSE, URINE (UA) Negative (Negative); LEUKOCYTE ESTERASE ,URINE Trace (Negative); URINE CENTRIFUGED VOLUME 12 mL; UROBILINOGEN,URINE 0.2 mg/dL (0.2-1.0)
[2016-10-28 04:38] LABS: RBC,URINE 0-2 /HPF
[2016-10-28] MEDS ORDERED: AMOX-358 PO (05:00)
[2016-10-28] MEDS ORDERED: AMOXICILLIN/CLAVULANATE 875MG-125MG (AUGMENTIN) TABLET PO ONE (05:05)
--- NOTE | 2016-10-28 05:16 | NUR ---
Pt was given discharge instruction. Attempted to assist into wheelchair, pt unable to bear weight on left leg and leans to right side while sitting. Family concerned about taking pt home. Dr. Delgado notified. Pt will be admitted.
[2016-10-28] MEDS ORDERED: POLYETHYLENE GLYCOL 17 GM (MIRALAX) PACKET PO PRN (05:30)
[2016-10-28] MEDS ORDERED: MAG HYDROX/AL HYDROX/SIMETH 200-200-20/5 ML (MAG-AL PLUS) 30 ML UDC PO PRN (05:30)
[2016-10-28] MEDS ORDERED: BISACODYL 10 MG SUPP (DULCOLAX) PR PRN (05:30)
[2016-10-28] MEDS ORDERED: ONDANSETRON 4 MG (ZOFRAN) ORAL DISSOLVE TAB PO PRN (05:30)
[2016-10-28] MEDS ORDERED: DOCUSATE SODIUM 100 MG (COLACE) CAP PO PRN (05:30)
[2016-10-28] MEDS ORDERED: GLUCAGON EMERGENCY 1 MG/KIT IM PRN (05:40)
[2016-10-28] MEDS ORDERED: DEXTROSE 50% 25 GM/50 ML SYRINGE IV PRN (05:40)
[2016-10-28] MEDS ORDERED: DEXTROSE ORAL GEL (GLUTOSE 40%) 15 GM TUBE PO PRN (05:40)
--- NOTE | 2016-10-28 05:45 | History and Physical (E) ---
History & Physical Admission Details Admit Date/Time 10-28-16 8477 Primary Care Provider Luis Fernando Lopez MD Subjective CC left sided weakness History of Present Illness 86 year old WF presented To the emergency room this evening for left-sided arm and leg weakness and left arm and face paresthesias She presented around midnight weakness that has worse around 7:45 PM. Currently Living at assisted living, she had a fall in July where she broke her right wrist, at that time she was not told that she had a stroke. It left her relatively disabled and she lost independent status. Reportedly her last known well time was at 3: 30 PM this afternoon. patient's daughters are at the bedside 1 of whom is a nurse and previous staff development coordinator, she states it wasn't out of the question for her to have some mild left-sided leg weakness but when her arm was involved and she was unable to walk this was definitely new and different. Her blood pressure and sugars have been relatively well controlled, but this evening in the emergency room her blood pressure did get as high as 10/102. The latest was 188/95, and earlier in the emergency room as well as 112/85. She does have a history of atrial fibrillation along with diabetes. She's been taking her Eliquis as prescribed. NIH scale in ER was 5 She doesn't know the last time she had an echo, does not have any history of congestive heart failure. She doesn't remember having a carotid ultrasound. Was told there was some evidence of old strokes on CT scan by the emergency room doctor. She denies headache, she denies any visual disturbances. She denies any slurring of her speech. Her daughter did note that her face was in a scowl most of the sudeep but better now, maybe a bit of droop to the right but not really a droop. she denies any cough or problems with shortness of breath or chest pain. No orthopnea or PND. She denies nausea vomiting abdominal pain. The last bowel movement was Wednesday morning and was normal. She denies any dysuria or hematuria. She has been battling urinary infections and had an enterococcal urinary infection recently. She denies any peripheral edema. She is quite claustrophobic, if she needed to have an MRI she would need to be sedated. PMH Atrial fibrillation She sees cardiology in [place] Diabetes mellitus type 2, currently receiving insulin therapy Hypertension "fibromyalgia" For which she takes azathioprine, she previously been on hydroxy work when that was ineffective. Her solar energy advisor in [place]. stage III kidney disease, she sees a construction craft laborer Hypothyroidism [facility] hysterectomy, cholecystectomy 2000, coronary angiography 1990, right knee arthroscopy She had back surgery [place] for her sciatica that relieved the pressure of a disc that failed FH n/c based on age SH She is , she lives in an assisted living facility has had home health nursing visiting with her. He smoked a small amount 15 years ago, she only occasionally drinks wine, he wishes to be DO NOT RESUSCITATE, her daughter the bedside is her DURABLE POWER [employer]. Allergies: Coded Allergies: Sulfa (Sulfonamide Antibiotics) (Verified Allergy, Unknown, 10/28/16) Home Medications Summary insulin lantus 35 units HS 500 mg twice a day Eliquis 5 mg BID Benicar HCTZ 40/25 1 daily Digoxin 125 g daily Magnesium oxide 400 mg daily Lantus 35 units at bedtime Tylenol PM Multivitamin Calcium gluconate 99 mg daily Vit c 1000 milligrams twice a day levothyroxine 100 g daily Duloxetine 30 mg daily Nexium 40 mg daily Review of Systems CONSTITUTION: HEENT: No change in vision or hearing. No sores in mouth, sore throat. CV: No chest pain, palpitations. PULM: No cough, shortness of breath, difficulty breathing. GI: No nausea, vomiting, constipation, or diarrhea. No blood in stool. : No dysuria. No blood in urine. MS: No new muscle or joint aches and pains. NEURO: SEE HPI INTEG: No rashes, lesions, or sores. ENDO: No heat or cold intolerance. No polydipsia or polyuria. HEME/LYMPH: No easy bruising or bleeding. No swollen glands. PSYCH: No change in mood or behavior. Objective Vital Signs Date Time Temp Pulse Resp B/P Pulse Ox O2 Delivery O2 Flow Rate FiO2 10/28/16 02:51 98.1 88 20 151/87 96 Room Air Physical Exam Physical Exam General--Awake and alert. No distress. HEENT--Normocephalic. MMM in oral cavity. Lungs--Clear to auscultation bilaterally. Nonlabored respirations. Heart--RRR. No murmurs. Abdomen--Normal bowel sounds. Soft. Nondistended. Nontender. Extremities--No edema Neuro: left leg weaker than right. Her left arm is ataxic compared to the right. I don't see any facial asymmetry. Her speech is fluent. She is alert and oriented 3. She is exceedingly pleasant. Laboratory Results Past 24 Hrs 10/28/16 03:18: Activated Partial Thromboplast Time 34.3, Alanine Aminotransferase (ALT/SGPT) 21 , Albumin 3.9, Albumin/Globulin Ratio 1.147, Alkaline Phosphatase 64, Anion Gap 11.9, Aspartate Amino Transf (AST/SGOT) 24, BUN/Creatinine Ratio 23, Basophils # (Auto) 0.0, Basophils (%) (Auto) 0, Blood Urea Nitrogen 18, Calcium Level 9.6 , Calcium/Ionized Calcium Ratio 4.2, Calculated Osmolality 273, Carbon Dioxide Level 29, Chloride Level 98, Creatine Kinase MB 1.1, Creatinine 0.79, Eosinophils # (Auto) 0.1, Eosinophils (%) (Auto) 1, Estimat Glomerular Filtration Rate 83.9, Estimated GFR (Non- 69.3, Glucose Level 145, Hematocrit 35.80, Hemoglobin 11.9, Lymphocytes # (Auto) 1.2, Lymphocytes (% ) (Auto) 16, Mean Corpuscular Hemoglobin 35.3, Mean Corpuscular Hemoglobin Concent 33.2, Mean Corpuscular Volume 106, Mean Platelet Volume 10.8, Monocytes # (Auto) 0.8, Monocytes (%) (Auto) 11, Neutrophils # (Auto) 5.4, Neutrophils (% ) (Auto) 71, Platelet Count 289, Potassium Level 3.9, Prothromb Time International Ratio 1.1, Prothrombin Time 12.0, Red Blood Count 3.37, Red Cell Distribution Width 15.8, Sodium Level 139, Thyroid Stimulating Hormone (TSH) 8.81, Total Bilirubin 0.4, Total Creatine Kinase 46, Total Protein 7.3, Troponin I 0.013, Urine Bacteria 1+, Urine Bilirubin Negative, Urine Blood Negative, Urine Clarity Clear, Urine Collection Type Clean catch, Urine Color Yellow, Urine Glucose (UA) Negative, Urine Ketones Negative, Urine Leukocyte Esterase 1+, Urine Microscopic RBC 0-2, Urine Nitrite Negative, Urine Protein Negative, Urine Specific [place] 1.015, Urine Squamous Epithelial Cells 50-100, Urine Urobilinogen 0.2, Urine WBC 10-20, Urine pH 7.0, Volume Urine Centrifuged 12 ml, White Blood Count 7.50 10/28/16 04:15: Urine Bacteria Rare, Urine Bilirubin Negative, Urine Blood Negative, Urine Clarity Clear, Urine Collection Type Catheter, Urine Color Yellow, Urine Glucose (UA) Negative, Urine Ketones Negative, Urine Leukocyte Esterase Trace, Urine Microscopic RBC 0-2, Urine Nitrite Negative, Urine Protein Negative, Urine Specific [place] 1.010, Urine Squamous Epithelial Cells 50-100, Urine Urobilinogen 0.2, Urine WBC 5-10, Urine pH 6.0, Volume Urine Centrifuged [address] head no bleed Assessment/Plan * possible acute CVA - weakness returns on side of previous stroke possibly?. , she does have diabetes which makes small vessel strokes also possible vascular disease. MRI of the brain will be helpful to assess his stroke or simply exacerbation of previous stroke by UTI. I've ordered tele and carotid Dopplers as as well as an echocardiogram. Obviously she is receiving quite excellent therapy, the only lacking is possibly a statin, I wonder if she had an intolerance because of her fibromyalgia. her blood pressure was markedly elevated, but I suspect this is probably the body compensating for the stroke itself. I've elected not to acutely treat, resume home meds * atrial fibrillation Her rate is controlled, she is on Eliquis, could be a source of stroke despite therapy, but seems un- likely * Diabetes mellitus type 2 we'll continue her home Lantus dosing and a correctional dose as well * possible recurrent UTI. He previously been treated for enterococcal UTI, she is receiving Augmentin follow-up urine cultures pending. * HTN - uncontrolled but could be compensatory high for CVA. no acute treatments unless SBP > 200 * FIbromyalgia - I've not heard of azathioprine for this. They mention she had a positive "lupus" test so perhaps for that. She is relatively immune compromised, but except for mild UTI not affeted. will continue azathioprine Diet- diabetic Code Status- DNR DVT prophylaxis- eliquis Disposition-Full admit. I anticipate that she'll need at least 2 overnight for evaluation. Justification for inpatient stay as noted above. End of Report . JUVENAL RUVALCABA MD October 28, 2016 05:45
--- NOTE | 2016-10-28 06:00 | NUR ---
Patient admitted at this time, daughter at bedside. See admission assessment part 1 & 2.
[2016-10-28] MEDS: LEVOTHYROXINE 100 MCG (LEVOTHROID) TABLET PO SCH (06:14)
--- NOTE | 2016-10-28 07:05 | Diagnostic Imaging Report ---
PROCEDURE: CT head without contrast. TECHNIQUE: Multiple contiguous axial images were obtained through the brain without the use of intravenous contrast. INDICATION: Left-sided weakness. Stroke protocol. Findings. There are no intracranial hemorrhages. No mass effect. No extra-axial fluid collection. There is cortical atrophy noted. Low density areas noted in the basal ganglia more prominent on the left consistent with small old lacunar infarct. There is opacification of the right sphenoid sinus air cell. IMPRESSION: 1. Generalized atrophy with finding consistent with old lacunar infarcts. 2. No evidence of acute ischemic or hemorrhagic infarct. 3. Opacification of the sphenoid air cell on the right again noted unchanged since 08/23/2016. These findings are in concordance with preliminary report. Dictated by: Dictated on workstation # [id number]
--- NOTE | 2016-10-28 08:09 | Progress Note (E) ---
Progress Note SUBJECTIVE Admitted a few hours ago. Came to ED from assisted living via EMS with left leg and arm weakness. Onset 2230 per ED report, already 4 hours before she came to ED. In H&P, last known well is documented at 7:45 pm the previous evening . She was reportedly alert and oriented in ED. Vitals stable though BP 151/ 87. CBC showed normal WBC without bandemia. Hgb 11.9. Chemistry fairly unremarkable. TSH elevated at 8.81. UA showed 1+ LE, 50-100 squamous, 1+ bacteria. CT head was negative for acute changes though she has evidence of prior thalamic lacunar infarct (but L > R). NIH stroke scale score is not recorded in ED record but per H&P it was 5. ED diagnosed her with UTI and had planned discharge back to assisted living with antibiotic, but she was unable to stand so was admitted for further observation and management. Since admit, vitals have remained stable. On exam this AM, awake, interactive, oriented. Still with deficits as outlined. Stroke scale score = 7 on my assessment. Updated patient and family on findings, plan of care. OBJECTIVE Vital Signs Date Time Temp Pulse Resp B/P Pulse Ox O2 Delivery O2 Flow Rate FiO2 10/28/16 06:58 69 10/28/16 06:40 97.6 18 98 Room air 10/28/16 02:51 151/87 GEN: Awake, interactive, oriented to person, place, situation. At present, NAD. HEENT: EOMI, clear sclerae, mildly dry oral mucosa. CV: Irregular without significant murmur. PULM: CTA B with no R/R/W. ABD: Soft, NT/ND with hypoactive bowel sounds. EXTR: No edema. Warm, dry, well-perfused. INTEG: Age related changes. NEURO: NIH stroke scale score = 7 (1 for mild facial palsy, 2 for left arm, 3 for left leg, 1 for dysarthria.) Gait not assessed. Lab-Past 14 Days, 35 Results 10/28/16 03:18: Activated Partial Thromboplast Time 34.3, Alanine Aminotransferase (ALT/SGPT) 21L, Albumin 3.9, Albumin/Globulin Ratio 1.147, Alkaline Phosphatase 64, Anion Gap 11.9, Aspartate Amino Transf (AST/SGOT) 24, BUN/Creatinine Ratio 23H, Basophils # (Auto) 0.0, Basophils (%) (Auto) 0, Blood Urea Nitrogen 18, Calcium Level 9.6, Calcium/Ionized Calcium Ratio 4.2, Calculated Osmolality 273L, Carbon Dioxide Level 29, Chloride Level 98, Creatine Kinase MB 1.1, Creatinine 0.79, Eosinophils # (Auto) 0.1, Eosinophils (%) (Auto) 1, Estimat Glomerular Filtration Rate 83.9, Estimated GFR (Non- 69.3, Glucose Level 145H, Hematocrit 35.80, Hemoglobin 11.9L, Lymphocytes # (Auto) 1.2, Lymphocytes (%) (Auto) 16L, Mean Corpuscular Hemoglobin 35.3H, Mean Corpuscular Hemoglobin Concent 33.2, Mean Corpuscular Volume 106H, Mean Platelet Volume 10.8H, Monocytes # (Auto) 0.8, Monocytes (%) (Auto) 11, Neutrophils # (Auto) 5.4, Neutrophils (%) (Auto) 71H, Platelet Count 289, Potassium Level 3.9, Prothromb Time International Ratio 1.1, Prothrombin Time 12.0, Red Blood Count 3.37L, Red Cell Distribution Width 15.8H, Sodium Level 139, Thyroid Stimulating Hormone ( TSH) 8.81#H, Total Bilirubin 0.4#, Total Creatine Kinase 46, Total Protein 7.3, Troponin I 0.013, Urine Bacteria 1+, Urine Bilirubin Negative, Urine Blood Negative, Urine Clarity Clear, Urine Collection Type Clean catch, Urine Color Yellow, Urine Glucose (UA) Negative, Urine Ketones Negative, Urine Leukocyte Esterase 1+H, Urine Microscopic RBC 0-2, Urine Nitrite Negative, Urine Protein Negative, Urine Specific [place] 1.015, Urine Squamous Epithelial Cells 50-100, Urine Urobilinogen 0.2, Urine WBC 10-20H, Urine pH 7.0, Volume Urine Centrifuged 12 ml, White Blood Count 7.50 10/28/16 04:15: Urine Bacteria Rare, Urine Bilirubin Negative, Urine Blood Negative, Urine Clarity Clear, Urine Collection Type Catheter, Urine Color Yellow, Urine Glucose (UA) Negative, Urine Ketones Negative, Urine Leukocyte Esterase TraceH, Urine Microscopic RBC 0-2, Urine Nitrite Negative, Urine Protein Negative, Urine Specific [place] 1.010, Urine Squamous Epithelial Cells 50-100, Urine Urobilinogen 0.2, Urine WBC 5-10H, Urine pH 6.0, Volume Urine Centrifuged 12 ml MICRO 10/28 Urine culture PENDING IMAGING 10/28/16 ECHO: PENDING 10/28/16 CAROTID DOPPLER: PENDING 10/28/16 CT HEAD WO PROCEDURE: CT head without contrast. TECHNIQUE: Multiple contiguous axial images were obtained through the brain without the use of intravenous contrast. INDICATION: Left-sided weakness. Stroke protocol. Findings. There are no intracranial hemorrhages. No mass effect. No extra-axial fluid collection. There is cortical atrophy noted. Low density areas noted in the basal ganglia more prominent on the left consistent with small old lacunar infarct. There is opacification of the right sphenoid sinus air cell. IMPRESSION: 1. Generalized atrophy with finding consistent with old lacunar infarcts. 2. No evidence of acute ischemic or hemorrhagic infarct. 3. Opacification of the sphenoid air cell on the right again noted unchanged since 08/23/2016. ASSESSMENT Tsering Pardo is a 86 year old female admitted from ED 10/28 for left sided arm and leg weakness attributed to new stroke. She presented > 4 hours after symptom onset. She has underlying CVD and prior history of thalamic lacunar infarct. She had mild evidence for UTI as well on admit. She has other chronic problems. PLAN * Stroke: Left sided weakness in arm and leg noted on admit. Has prior lacunar infarct noted on CT, but L > R so left sided weakness is perhaps new. Per HPI, patient may not tolerate MRI well. Plan MRI if possible to further evaluate. Already on apixaban for stroke prophylaxis. Added aspirin 10/28. Echo and carotid doppler pending. Check lipid profile and add statin if appropriate. ST eval swallow. PT/OT eval and treat. Can order MRI with sedation after discharge. (She prefers doing it in [place] if possible.) * UTI: Not reportedly symptomatic other than weakness. Urine culture pending. Had already completed a course of ciprofloxacin the week prior to this admit for UTI. Amoxicillin/clavulanate x 3 days, then stop antibiotic altogether. Follow-up previous culture. * Deconditioning, TIA vs. Stroke: PT/OT eval and treat. * F/E/N: Diabetic, mechanical soft. Peripheral IV. I&O. * Prophylaxis: Apixaban * Code status: DNR * Dispo: Inpatient. Expect 3 day stay. Likely transfer to [facility] for 3-4 week rehab course. CHRONIC ISSUES * Hypothyroidism: TSH elevated at 8.81. Had been 5.44 in July. Check T4. For now, continued levothyroxine at 100 mcg. Consider increasing dose. Recheck TSH in 4 weeks. * CVD: Old lacunar infarcts noted in basal ganglia L > R on CT scan this admit. * Insomnia: Observe * GERD: Pantoprazole (sub for esomeprazole) * Diabetes Mellitus Type II: Basal insulin, sliding scale. * Atrial fibrillation: Apixaban, digoxin. * Fibromyalgia, OA: Azathioprine. Follows with Dr. Kinney in [place]. * Depression: Duloxetine * Chronic Pain: tramadol * CKD Stage III: Per H&P... Cr on admit 0.79. Clearance 67. Monitor. SIRIA CAMP MD October 28, 2016 07:52
[2016-10-28] MEDS ORDERED: OLME1TAB42 PO (08:27)
[2016-10-28] MEDS ORDERED: HYDR-3702 PO (08:29)
--- NOTE | 2016-10-28 08:40 | Diagnostic Imaging Report ---
INDICATION: Weakness. Comparison with 08/03/2016. FINDINGS: Portable chest shows lungs to be well-aerated and clear. The heart is slightly smaller on today's exam. No evidence of pulmonary edema. No infiltrate. No pleural effusion. No hilar adenopathy. No pneumothorax. No bony abnormalities. IMPRESSION: Normal portable chest. There has been decrease in cardiac size since previous exam. Dictated by: Dictated on workstation # [id number]
--- NOTE | 2016-10-28 08:43 | NUR ---
Medication reconciliation completed using [facility] MAR. Orders updated in EMR.
[2016-10-28] MEDS ORDERED: azaTHIOprine (IMURAN) 50 MG TAB PO SCH ×2 (09:00)
[2016-10-28] MEDS ORDERED: NON-FORMULARY MEDICATION 1 EA EA (Potassium Gluconate (Potassium) 99 MG) PO SCH (09:00)
[2016-10-28] MEDS: INSULIN LISPRO 1 UNIT/0.01 ML (HUMALOG) DOSE SC SCH ×4 (09:09→20:51)
[2016-10-28] MEDS: DULoxetine 30 MG (CYMBALTA) CAPSULE PO SCH (09:34)
[2016-10-28] MEDS: APIXABAN 2.5 MG (ELIQUIS) TABLET PO SCH ×2 (09:34→20:55)
[2016-10-28] MEDS: DIGOXIN 0.125 MG (LANOXIN) TAB PO SCH (09:35)
[2016-10-28] MEDS: ASPIRIN 81 MG CHEW (LOW-DOSE) PO SCH (09:35)
[2016-10-28] MEDS: MAGNESIUM OXIDE 400 MG (MAG-OX) TAB PO SCH (09:35)
[2016-10-28] MEDS: PANTOPRAZOLE 40 MG (PROTONIX) TAB PO SCH (09:35)
--- NOTE | 2016-10-28 09:35 | NUR ---
Pt takes AM meds without difficulty- takes a couple pills at a time. IV SL intact Lt wrist. Left arm is weaker than right. Left leg is very weak. Smile is symmetrical. Left pupil brisk, reactive to light. Right pupil sluggish to light. Daughter Deedee at bedside. Call light within reach. Will cont to monitor.
[2016-10-28] MEDS: AMOXICILLIN/CLAVULANATE 875MG-125MG (AUGMENTIN) TABLET PO SCH ×2 (09:36→20:56)
[2016-10-28] MEDS: HYDROCHLOROTHIAZIDE 12.5 MG (HCTZ) TABLET PO SCH (09:38)
[2016-10-28] MEDS: VALSARTAN 160 MG (DIOVAN) TABLET PO SCH (09:38)
[2016-10-28] MEDS: azaTHIOprine (IMURAN) 50 MG TAB PO SCH ×2 (09:39→20:56)
--- NOTE | 2016-10-28 10:26 | NUR ---
Echo in room now.
--- NOTE | 2016-10-28 12:27 | Diagnostic Imaging Report ---
PROCEDURE: US Carotid Duplex Bilateral. TECHNIQUE: Multiple real-time grayscale images were obtained over the carotid arteries in various projections bilaterally. Additional duplex Doppler and color Doppler images were also obtained. INDICATION: CVA, left-sided weakness, hypertension. COMPARISON: None available. FINDINGS: Right carotid circulation: The right common carotid artery is normal in caliber, and there is no significant stenosis. Peak systolic velocity in the right common carotid artery is 90 cm/sec. There is no appreciable atherosclerotic plaque in the carotid bulb and proximal internal carotid artery. The peak systolic velocity in the proximal internal carotid artery is 72 cm/sec. Proximal aspect of the external carotid artery is patent with expected high resistance waveforms, and peak systolic velocity of 85 cm/sec. Left carotid circulation: The left common carotid artery is normal in caliber, and there is no significant stenosis. Peak systolic velocity in the left common carotid artery is 91 cm/sec. There is minimal noncalcified atherosclerotic plaque in the carotid bulb and proximal internal carotid artery, which results in less than 50% luminal narrowing by medley scale imaging. The peak systolic velocity in the proximal internal carotid artery is 81 cm/sec. Proximal aspect of the external carotid artery is patent with expected high resistance waveforms, and peak systolic velocity of 97 cm/sec. Vertebral arteries: Flow in the left vertebral artery is antegrade. There appears to be bidirectional flow within the right vertebral artery, suggestive of potential stenosis within the more central subclavian/brachiocephalic. IMPRESSION: 1. Less than 50% stenosis of the proximal left ICA due to minimal atherosclerotic plaquing. 2. Normal right ICA. 3. Suggestion of bidirectional flow in the right vertebral artery, raising suspicion for stenosis within the right brachiocephalic/subclavian artery. Consider CTA of the neck for further evaluation. Dictated by: Dictated on workstation # [id number]
--- NOTE | 2016-10-28 15:13 | ST Evaluation (E) ---
POC POC Problems Identified: Cognition ST Plan: Evaluation-Speech, Speech therapy Frequency of ST: Five times weekly Duration of ST: While on Acute Care Therapy to include: Cognitive retraining Aware of Dx and Prognosis: Yes Aware of Risk & Benefit: Yes Goals Discussed/Agreed: Yes Short Term Goals Short Term Goals 1. Patient to complete visuospatial activities with min assist. 2. Patient to complete alternating attention activities with min assist. 3. patient to recall five words after five minutes independently. STG Time Frame: 7 Days Initial Evaluation Service Date/Time 10/28/16, 15:07 Primary Diagnosis: (1) CVA (cerebral vascular accident) ICD Code: I63.9 Treatment Diagnosis: (1) Cognitive communication deficit ICD Code: R41.841 Onset Date: 10/28/16 SOC Date: October 28, 2016 Precautions Precaution/Isolation: Standard Precautions Fall Level: No Risk 0-24 Resuscitation Status: Do Not Resuscitate Pain Level: 0 Initial Assessment Reason for Referral: Evaluation and Treat Pertinent Medical History: A-Fib, Depression, Hypertension, Other Rehabilitation Potential: Good Rehab Potential Based On recent CVA Receptive Language Yes/No Accuracy: WF Open Ended Questions: [facility] Pictures/Object Identification: [facility] Expressive Language Automatic Speech: [facility] Naming/Word Finding: [facility] Reptition: Minimum Sentence Formation: WF Progmatics: [facility] Oral-Facial Examination Dentition: [facility] Facial Symmetry: Minimum Lingual Structure/Formation: Minimum Labial Structure/Formation: WFL Velar Structure/Formation: WFL (Patient demonstrated no outward s/s of aspiration) Speech/Voice Fluency: [facility] Prosody: WF Rate: WF Quality: WFL Volume: WFL Intelligibility: WF Hearing Auditory Discrimination: WF Cognition Alertness: WFL (Patient scored 18/30 on [place] Cognitive Assessment (MOCA)) Attention: Moderate Orientation: WF Immediate Recall: WF Short Term Memory: Severe Half-Way Memory: WFL Coding Time In: 1350 Time Out: 1418 Total Minutes: 28 CPT Codes / Units: 70033 RAYMOND Tompkins [employer]ATBUIL[employer] SUPERVIS[employer] October 28, 2016 15:13
--- NOTE | 2016-10-28 15:45 | Physical Therapy Evaluation(E) ---
Plan of Care STG: Plan-Treatment Functional: Trans. 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 Goals Discussed/Agreed: Yes Plan: Balance, Endurance, Functional Strengthening, Stroke Rehab, Transfer Training Discharge Recommendations: TCU/Skilled NH Aware of Dx and Prognosis: Yes Aware of Risk & Benefit: Yes To be Seen: Daily Wednesday-Wednesday Initial Evaluation Service Date/Time 10/28/16, 12:41 Primary Diagnosis: (1) UTI (urinary tract infection) ICD Code: N39.0 (2) CVA (cerebral vascular accident) ICD Code: I63.9 (3) Acute focal neurological deficit ICD Code: R29.818 (4) Weakness ICD Code: R53.1 Treatment Diagnosis: (1) CVA (cerebral vascular accident) ICD Code: I63.9 (2) Weakness ICD Code: R53.1 Onset Date: 10/27/2016 Resuscitation Status: Do Not Resuscitate Precaution/Isolation: Standard Precautions Fall Level: High Risk 51 or greater Initial Assessment Reason for Rehab: Increase Mobility, Increase Strength, Increase Balance, Increase Transfers Medical History: A-Fib, Depression, Hypertension, Other Pain Level: 0 Pain Location/Comment Patient is reporting no pain at this date. Prior Level of Function PLOF is fair. Pt was living at [facility] with assist with all dressing, bathing , and ambulating. Rehabilitation Potential: Fair Comment Rehab potential is fair based on PLOF, family support, and results of evaluation findings at this date. Assistive Device: 4 Wheeled Walker Distance Walked in Feet Pt was previously ambulating at [facility] with a 4WW for distances of 200' at a time. Patient's ambulation was not assessed at this date due to patient's functional level at this time. ROM/Strength Knee Flexion Mobility: Right Knee Flexion: WFL Right Knee Flexion Strength: 3 Left Knee Flexion: WFL Left Knee Flexion Strength: 1 Knee Extension Mobility: Right Knee Extension: WFL Right Knee Extension Strength: 3 Left Knee Extension: WFL Left Knee Extension Strength: 1 Ankle Mobility: Right Ankle ROM: WFL Right Ankle Strength: 3 Left Ankle ROM: WFL Left Ankle Strength: 1 Assessment/Goals Initial Transfer Assessment Rolling: Moderate Assistance Sit-Supine: Maximal Assistance Sitting Edge of Bed: Maximal Assistance Supine-Sit: Maximal Assistance Sit-Stand from Bed: Not Assessed/NA Stand-Sit: Not Assessed/NA Pivot Transfers: Not Assessed/NA Ambulation: Not Assessed/NA Transfer Short Term Goals Rolling: Moderate Assistance Sit-Supine: Moderate Assistance Sitting Edge of Bed: Moderate Assistance Supine-Sit: Moderate Assistance Sit-Stand from bed: Moderate Assistance Stand-Sit: Moderate Assistance Pivot Transfer: Moderate Assistance Ambulation: Not Assessed/NA Distance to Walk in Feet No ambulation goal at this time as patient's ambulation status was not assessed. Treatments Treatments Comment Pt was supine in bed upon arrival. Pleasant and agreeable to session. Sp02 96% and HR 89 prior to activity. Pt completed supine>sit at EOB with mod-max assist with both MC and VC for swinging legs over and trunk support for upright posture. Pt needing RUE support on R handrail for rolling in bed. Pt able to sit without support at the trunk for approximately 10 seconds before needing physical assist from leaning backwards. Pt able to assist in initiation of sit> supine, but needing mod-max assist for BLE and trunk support for swinging into bed. Max assist for boost up in bed. HOB at 30 degrees. Pt comfortable and all needs met upon completion of session. Call light within reach and family present upon completion of session. Ambulation Ambulation not assessed due to functional status at this time. Coding Time In: 11:15 Time Out: 11:42 Total Minutes: 27 Charges: 67830 Eval 21-30 miin Rehab G Codes Current Functional Status: [id number] Current Modifier: CM 80% but <100% Projected Functional Goal: [id number] Goal Modifier: CJ 20% but <40% NENITA NARANJO PT October 28, 2016 13:01
--- NOTE | 2016-10-28 18:03 | NUR ---
Pt transfers to and from commode with 2 assist and gait belt. Weight bearing on Right side but drags left leg. Alert/oriented. Eating supper meal. Visitors at bedside. Calls appropriately for assist.
[2016-10-28] MEDS: INSULIN GLARGINE 1 UNIT/0.01ML (LANTUS) DOSE SC SCH (20:56)
[2016-10-28] MEDS ORDERED: INSULIN GLARGINE HUM REC ANLOG 35 UNIT SQ SCH (21:00)
[2016-10-28] MEDS: ACETAMINOPHEN 325 MG TAB (TYLENOL) PO PRN (21:00)
[2016-10-28] MEDS ORDERED: [UNRECOGNIZED DRUG - OTHER] SQ SCH (21:00)
[2016-10-29] VITALS (10 sets, daily range): BP systolic 129–165; BP diastolic 72–94
[2016-10-29] MEDS ORDERED: SODIUM CHLORIDE FLUSH 3 ML SYR IV PRN (02:55)
[2016-10-29] MEDS ORDERED: SODIUM CHLORIDE FLUSH 10 ML SYR IV PRN (02:55)
[2016-10-29 06:08] LABS: BASOPHILS % (AUTO) 0 % (0-2); EOSINOPHILS # (AUTO) 0.1 10^3uL; EOSINOPHILS % (AUTO) 2 % (0-4); LYMPHOCYTES # (AUTO) 0.8 X10^3; MEAN CORPUSCULAR HGB CONC 32.9 g/dL (31.0-37.0); MEAN PLATELET VOLUME 10.9 FL (6.0-9.5); MONOCYTES # (AUTO) 0.6 X10^3; MONOCYTES % (AUTO) 10 % (3-11); NEUTROPHILS # (AUTO) 4.2 X10^3; NEUTROPHILS % (AUTO) 74 % (51-67); PLATELET COUNT 275 10^3uL (150-450); WHITE BLOOD COUNT 5.71 10^3uL (4.0-11.0)
[2016-10-29 06:10] LABS: MEAN CORPUSCULAR VOLUME 107 FL (80-100)
[2016-10-29] MEDS: INSULIN LISPRO 1 UNIT/0.01 ML (HUMALOG) DOSE SC SCH ×4 (06:13→20:45)
[2016-10-29] MEDS: LEVOTHYROXINE 100 MCG (LEVOTHROID) TABLET PO SCH (06:19)
[2016-10-29] MEDS: PANTOPRAZOLE 40 MG (PROTONIX) TAB PO SCH (06:19)
--- NOTE | 2016-10-29 06:23 | NUR ---
Pt rests in short intervals throughout the night. C/o pain in her legs. PRN tylenol and ultram provided. SL intact. Resp even and non labored on RA. Cont to require staff assist x2 and gait belt to stand pivot. Is able to bear weight on right foot, but drags left foot.
[2016-10-29 06:26] LABS: ALBUMIN 3.7 g/dL (3.4-5.0); ANION GAP 13.6 MEQ/L (3-15)
--- NOTE | 2016-10-29 08:35 | NUR ---
Pt resting in bed, transfers to/from commode with 2 assist- still unable to move left leg with transfers. Left arm is weak, smile symmetrical. Alert/oriented x4. Takes AM meds without difficulty.
[2016-10-29] MEDS: HYDROCHLOROTHIAZIDE 12.5 MG (HCTZ) TABLET PO SCH (08:38)
[2016-10-29] MEDS: ASPIRIN 81 MG CHEW (LOW-DOSE) PO SCH (08:38)
[2016-10-29] MEDS: azaTHIOprine (IMURAN) 50 MG TAB PO SCH ×2 (08:38→20:43)
[2016-10-29] MEDS: DIGOXIN 0.125 MG (LANOXIN) TAB PO SCH (08:38)
[2016-10-29] MEDS: APIXABAN 2.5 MG (ELIQUIS) TABLET PO SCH ×2 (08:38→20:43)
[2016-10-29] MEDS: DULoxetine 30 MG (CYMBALTA) CAPSULE PO SCH (08:38)
[2016-10-29] MEDS: AMOXICILLIN/CLAVULANATE 875MG-125MG (AUGMENTIN) TABLET PO SCH ×2 (08:38→20:43)
[2016-10-29] MEDS: VALSARTAN 160 MG (DIOVAN) TABLET PO SCH (08:38)
[2016-10-29] MEDS: MAGNESIUM OXIDE 400 MG (MAG-OX) TAB PO SCH (08:38)
--- NOTE | 2016-10-29 09:01 | NUR ---
NUTRITION ASSESSMENT Level 1 Patient: Tsering Pardo Age/Sex: 86/F Date Screened: 10-29-16 Weight: 175.5#/79.8 kg Height: 67 inches Primary Diagnosis: left-sided weakness/stroke Diet Order: medium diabetic Relevant labs: glucose 103, triglycerides 133, cholesterol 194, LDL 129, HDL 38, TSH 8.81 Food allergies: N Nutrition Assessment Criteria Age over 80: 4 points Body Mass Index (BMI) under 19: N Admission Screening Indicates Risk? 3 points Moderate/High Risk Diagnosis: 3 points TPN or PPN: N NPO or clear liquid diet: N Serum Glucose <70 or >180: N Hgb A1c >6.7: N/A Total: 10 points Risk Screen: __ Patient at low nutritional risk based on available data; reevaluate in 5-7 days __ Patient at moderate nutritional risk based on available data; reevaluate in 3-5 days _X_ Patient at high nutritional risk; complete Nutrition Assessment within 48 hours of admission.
--- NOTE | 2016-10-29 10:26 | NUR ---
@0900- Jevon HINKLE attempted to see patient but pt and daughter were visiting on phone- daughter Deedee asked Jevon to give them a few minutes and come back- Jevon had to leave for another facility and will be back around 1530- pt and Deedee aware. Pt is resting in bed at this time. calls appropriately for needs. 20g IV intact to Lt wrist.
--- NOTE | 2016-10-29 10:27 | NUR ---
NUTRITION ASSESSMENT Level II Patient: Tsering Pardo Age/Sex: 86/F Date Assessed: 10-29-16 ASSESSMENT Pertinent History: Patient admitted with left-sided weakness/stroke and screened at high nutritional risk secondary to diagnosis and elderly age. PMHx includes a fib, diabetes, HTN, fibromyalgia, stage 3 CKD and hypothyroidism. Pt. had intentionally lost weight a couple of years ago after her diabetes dx., but is gradually regaining some. Weight hx. includes 169# in August 2016, and 170# in 2015. She lives in Assisted Living. Pt. denied GI concerns. Noted speech therapy assessment documented no s/s aspiration. Visited with pt. and daughter, who both denied that she is having problems swallowing; they asked if her mechanical soft diet could be changed. Daughter stated sometimes she has to remind her mom to chew carefully, but "it's not a new problem, just part of getting older." Pt. can't cut her own meat, but if it's cut for her she has no difficulty chewing or swallowing. Meds/Nutrition: Lantus, HCTZ, Humalog, Protonix, Synthroid Weight: 175.5#/79.8 kg Height: 67 inches Body Mass Index (BMI): 27.6 [place] Body Weight : 135#/61.3 kg % IBW: 130% GASTROINTESTINAL Appetite: improving, eating 75% now, up from 15-50% at admission Diet Order: medium diabetic, mechanical soft Unintentional loss of >10 lbs. in 3 months: N Difficult to chew/swallow: N Diabetes: Yes Relevant Labs: glucose 103, triglycerides 133, cholesterol 194, LDL 129, HDL 38, TSH 8.81 Calculations for Nutritional Assessment Estimated calorie needs: 22-25 kcals/kg = 1,730-1,975 kcals Estimated protein needs: 1.0-1.3 g/kg = 79-102 g./day DIAGNOSIS 1. Nutrition Diagnosis: Potential for inadequate intake related to CVA as evidenced by illness with severe weakness and needs meat cut up to be able to effectively chew/swallow it. NUTRITIONAL INTERVENTION Goal: Patient will receive adequate nutrition to meet her needs. Plan: Asked physician if we could upgrade diet to medium diabetic, cut-up meats instead of mechanical soft, and he agreed. Will order this change and notify dietary. Will monitor intake for adequacy. MONITORING & EVALUATION _X_ Monitor patients menu selections _X_ Monitor patients food intake per nursing notes __ Monitor NPO/clear liquid days __ Monitor lab values __ Monitor I&O _X_ Other--monitor swallow ability
--- NOTE | 2016-10-29 11:26 | NUR ---
[place] PT in room working with patient at this time. Daughter Deedee remains at bedside.
--- NOTE | 2016-10-29 11:50 | PT Daily Note Inpatient (E) ---
PT Daily Treatment Service Date/Time 10/29/16, 11:47 Medical Diagnosis: (1) UTI (urinary tract infection) ICD Code: N39.0 (2) CVA (cerebral vascular accident) ICD Code: I63.9 (3) Acute focal neurological deficit ICD Code: R29.818 (4) Weakness ICD Code: R53.1 Physical Therapy: (1) CVA (cerebral vascular accident) ICD Code: I63.9 (2) Weakness ICD Code: R53.1 Precaution/Isolation: Standard Precautions Resuscitation Status: Do Not Resuscitate Fall Level: High Risk 51 or greater Subjective Pt pleasant and cheerful, agrees to therapy Pain Level: 0 Oxygen Delivery: Room air Treatments Extremity: Both Lower Extremity Assistance: AAROM Repetition: 1 x 10 Exercise: AP, Heel Slides, Hip Abduction, Hip Adduction, SLR, External Rotation , Internal Rotation Comment manual resistance provided in all planes of LLE Education/Plan Assessment Tolerates exercises well, encouraged by patients muscle strength for good rehab potential Safety Awareness: Impaired Response to Treatment: Improving Plan Cont POC Patient will be seen: Daily Discharge Recommendations: TCU/Skilled NH Coding Time In: 1127 Time Out: 1147 Total Minutes: 20 Charges: 19016 Exercise [place] m VIVIAN MANE PTA October 29, 2016 11:50
--- NOTE | 2016-10-29 14:25 | Progress Note (E) ---
Progress Note SUBJECTIVE Overnight, no major issues. Still has poor use of left leg. ST cleared her for oral intake, thin liquids. Patient still on board with transition to skilled care soon. Updated her and daughter at beside on findings and plan of care. OBJECTIVE Vital Signs Date Time Temp Pulse Resp B/P Pulse Ox O2 Delivery O2 Flow Rate FiO2 10/29/16 12:00 84 10/29/16 11:12 97.9 17 145/85 98 Room air I & O 10/28/16 10/29/16 Cumulative From/Thru 19:00 07:00 10/28/16 02:51 - 10/29/16 06:01 Intake Total 1404 ml 887 ml 2291 ml Output Total 1000 ml 1250 ml 2250 ml Balance 404 ml -363 ml 41 ml GEN: Awake, interactive, oriented to person, place, situation. At present, NAD. HEENT: EOMI, clear sclerae, mildly dry oral mucosa. Still with some left facial droop. Speech is improved. CV: Irregular without significant murmur. PULM: CTA B with no R/R/W. ABD: Soft, NT/ND with active bowel sounds. EXTR: No edema. Warm, dry, well-perfused. INTEG: Age related changes. NEURO: On admit, NIH stroke scale score = 7 (1 for mild facial palsy, 2 for left arm, 3 for left leg, 1 for dysarthria.) Gait not assessed. 10/29: Still has minimal movement of left leg against gravity. Dorsi-and plantar flexion 1/ 5. Lab-Past 14 Days, 35 Results 10/28/16 03:18: Activated Partial Thromboplast Time 34.3, Alanine Aminotransferase (ALT/SGPT) 21L, Albumin 3.9, Albumin/Globulin Ratio 1.147, Alkaline Phosphatase 64, Anion Gap 11.9, Aspartate Amino Transf (AST/SGOT) 24, BUN/Creatinine Ratio 23H, Basophils # (Auto) 0.0, Basophils (%) (Auto) 0, Blood Urea Nitrogen 18, Calcium Level 9.6, Calcium/Ionized Calcium Ratio 4.2, Calculated Osmolality 273L, Carbon Dioxide Level 29, Chloride Level 98, Creatine Kinase MB 1.1, Creatinine 0.79, Eosinophils # (Auto) 0.1, Eosinophils (%) (Auto) 1, Estimat Glomerular Filtration Rate 83.9, Estimated GFR (Non- 69.3, Free Thyroxine ( T4) Calculated 0.85, Glucose Level 145H, Hematocrit 35.80, Hemoglobin 11.9L, Lymphocytes # (Auto) 1.2, Lymphocytes (%) (Auto) 16L, Mean Corpuscular Hemoglobin 35.3H, Mean Corpuscular Hemoglobin Concent 33.2, Mean Corpuscular Volume 106H, Mean Platelet Volume 10.8H, Monocytes # (Auto) 0.8, Monocytes (%) ( Auto) 11, Neutrophils # (Auto) 5.4, Neutrophils (%) (Auto) 71H, Platelet Count 289, Potassium Level 3.9, Prothromb Time International Ratio 1.1, Prothrombin Time 12.0, Red Blood Count 3.37L, Red Cell Distribution Width 15.8H, Sodium Level 139, Thyroid Stimulating Hormone (TSH) 8.81#H, Total Bilirubin 0.4#, Total Creatine Kinase 46, Total Protein 7.3, Troponin I 0.013, Urine Bacteria 1+ , Urine Bilirubin Negative, Urine Blood Negative, Urine Clarity Clear, Urine Collection Type Clean catch, Urine Color Yellow, Urine Glucose (UA) Negative, Urine Ketones Negative, Urine Leukocyte Esterase 1+H, Urine Microscopic RBC 0-2 , Urine Nitrite Negative, Urine Protein Negative, Urine Specific [place] 1.015, Urine Squamous Epithelial Cells 50-100, Urine Urobilinogen 0.2, Urine WBC 10-20H , Urine pH 7.0, Volume Urine Centrifuged 12 ml, White Blood Count 7.50 10/28/16 04:15: Urine Bacteria Rare, Urine Bilirubin Negative, Urine Blood Negative, Urine Clarity Clear, Urine Collection Type Catheter, Urine Color Yellow, Urine Glucose (UA) Negative, Urine Ketones Negative, Urine Leukocyte Esterase TraceH, Urine Microscopic RBC 0-2, Urine Nitrite Negative, Urine Protein Negative, Urine Specific [place] 1.010, Urine Squamous Epithelial Cells 50-100, Urine Urobilinogen 0.2, Urine WBC 5-10H, Urine pH 6.0, Volume Urine Centrifuged 12 ml 10/29/16 05:20: Albumin 3.7, Anion Gap 13.6, Basophils # (Auto) 0.0, Basophils (%) (Auto) 0, Blood Urea Nitrogen 16, Calcium Level 9.6, Carbon Dioxide Level 30H, Chloride Level 100, Creatinine 0.76, Eosinophils # (Auto) 0.1, Eosinophils (%) (Auto) 2, Estimat Glomerular Filtration Rate 87.7, Estimated GFR (Non- 72.5, Glucose Level 103#, Hematocrit 35.60, Hemoglobin 11.7L, Lymphocytes # ( Auto) 0.8, Lymphocytes (%) (Auto) 14L, Mean Corpuscular Hemoglobin 35.0H, Mean Corpuscular Hemoglobin Concent 32.9, Mean Corpuscular Volume 107H, Mean Platelet Volume 10.9H, Monocytes # (Auto) 0.6, Monocytes (%) (Auto) 10, Neutrophils # (Auto) 4.2, Neutrophils (%) (Auto) 74H, Platelet Count 275, Potassium Level 3.8, Red Blood Count 3.34L, Red Cell Distribution Width 15.9H, Sodium Level 140, White Blood Count 5.71, Cholesterol Level 194, Cholesterol/ HDL Ratio 5.1H, HDL Cholesterol 38L, LDL Cholesterol, Calculated 129, Phosphorus Level 4.8, Triglycerides Level 133, VLDL Cholesterol, Calculated 27 MICRO 10/28 Urine culture Negative to date. IMAGING 10/28/16 ECHO: Prelim: EF 65-70%. RVSP 39 mmHg. 10/28/16 US CAROTID BILATERAL COMPLETE PROCEDURE: US Carotid Duplex Bilateral. TECHNIQUE: Multiple real-time grayscale images were obtained over the carotid arteries in various projections bilaterally. Additional duplex Doppler and color Doppler images were also obtained. INDICATION: CVA, left-sided weakness, hypertension. COMPARISON: None available. FINDINGS: Right carotid circulation: The right common carotid artery is normal in caliber, and there is no significant stenosis. Peak systolic velocity in the right common carotid artery is 90 cm/sec. There is no appreciable atherosclerotic plaque in the carotid bulb and proximal internal carotid artery. The peak systolic velocity in the proximal internal carotid artery is 72 cm/sec. Proximal aspect of the external carotid artery is patent with expected high resistance waveforms, and peak systolic velocity of 85 cm/sec. Left carotid circulation: The left common carotid artery is normal in caliber, and there is no significant stenosis. Peak systolic velocity in the left common carotid artery is 91 cm/sec. There is minimal noncalcified atherosclerotic plaque in the carotid bulb and proximal internal carotid artery, which results in less than 50% luminal narrowing by medley scale imaging. The peak systolic velocity in the proximal internal carotid artery is 81 cm/sec. Proximal aspect of the external carotid artery is patent with expected high resistance waveforms, and peak systolic velocity of 97 cm/ sec. Vertebral arteries: Flow in the left vertebral artery is antegrade. There appears to be bidirectional flow within the right vertebral artery, suggestive of potential stenosis within the more central subclavian/brachiocephalic. IMPRESSION: 1. Less than 50% stenosis of the proximal left ICA due to minimal atherosclerotic plaquing. 2. Normal right ICA. 3. Suggestion of bidirectional flow in the right vertebral artery, raising suspicion for stenosis within the right brachiocephalic/subclavian artery. Consider CTA of the neck for further evaluation. 10/28/16 CT HEAD WO PROCEDURE: CT head without contrast. TECHNIQUE: Multiple contiguous axial images were obtained through the brain without the use of intravenous contrast. INDICATION: Left-sided weakness. Stroke protocol. Findings. There are no intracranial hemorrhages. No mass effect. No extra-axial fluid collection. There is cortical atrophy noted. Low density areas noted in the basal ganglia more prominent on the left consistent with small old lacunar infarct. There is opacification of the right sphenoid sinus air cell. IMPRESSION: 1. Generalized atrophy with finding consistent with old lacunar infarcts. 2. No evidence of acute ischemic or hemorrhagic infarct. 3. Opacification of the sphenoid air cell on the right again noted unchanged since 08/23/2016. ASSESSMENT Tsering Pardo is a 86 year old female admitted from ED 10/28 for left sided arm and leg weakness attributed to new stroke. She presented > 4 hours after symptom onset. She has underlying CVD and prior history of thalamic lacunar infarct. She had mild evidence for UTI as well on admit. She has other chronic problems. PLAN * Stroke: Left sided weakness in arm and leg noted on admit. Has prior lacunar infarct noted on CT, but L > R so left sided weakness is perhaps new. Per HPI, patient may not tolerate MRI well. Plan MRI if possible to further evaluate. Already on apixaban for stroke prophylaxis. Added aspirin 10/28. Echo and carotid doppler pending. Check lipid profile and add statin if appropriate. ST eval swallow. PT/OT eval and treat. Can order MRI with sedation after discharge. (She prefers doing it in [place] if possible.) * Vertebral Artery Stenosis, Right: Possible, on the basis of carotid doppler. CT neck angio. * UTI: Not reportedly symptomatic other than weakness. Urine culture pending. Had already completed a course of ciprofloxacin the week prior to this admit for UTI. Amoxicillin/clavulanate x 3 days, then stop antibiotic altogether. Follow-up previous culture. * Deconditioning, TIA vs. Stroke: PT/OT eval and treat. * F/E/N: Diabetic, mechanical soft. Peripheral IV. I&O. * Prophylaxis: Apixaban * Code status: DNR * Dispo: Inpatient. Expect 3 day stay. Likely transfer to [facility] for 3-4 week rehab course. CHRONIC ISSUES * HLD: Mild on the basis of lipid profile this admit. Started atorvastatin. * Hypothyroidism: TSH elevated at 8.81. Had been 5.44 in July. T4 low end of normal at 0.85. Increased dose of levothyroxine to 125 mcg. Check TSH in 4 weeks. * CVD: Old lacunar infarcts noted in basal ganglia L > R on CT scan this admit. * Insomnia: Observe * GERD: Pantoprazole (sub for esomeprazole) * Diabetes Mellitus Type II: Basal insulin, sliding scale. * Atrial fibrillation: Apixaban, digoxin. * Fibromyalgia, OA: Azathioprine. Follows with Dr. Kinney in [place]. * Depression: Duloxetine * Chronic Pain: tramadol * CKD Stage III: Per H&P... Cr on admit 0.79. Clearance 67. Monitor. SIRIA CAMP MD October 29, 2016 14:04
--- NOTE | 2016-10-29 14:56 | NUR ---
Pt to Radiology for CTA.
--- NOTE | 2016-10-29 15:37 | NUR ---
MULTIDISCIPLINARY MTG/DR. CAMP: Pt. admitted with left sided weakness of her left leg and arm. There has not been any improvement with this. Pt. is unable to tolerate an MRI and therefore treating as a stroke. Pt. had mild evidence of a UTI which she was treated for prior to this hospitalization. Will complete her antibiotic therapy here. Pt. receiving PT/OT/ST. Plan to skill Pt. at [facility]. Pt. would not be able to discharge until Wednesday. SW contacted [facility] to review Pt. for acceptance for skilled care on Wednesday.
--- NOTE | 2016-10-29 16:00 | ST Daily Note (E) ---
Initial Review Service Date/Time 10/29/16, 15:58 Primary Diagnosis: (1) UTI (urinary tract infection) ICD Code: N39.0 (2) CVA (cerebral vascular accident) ICD Code: I63.9 (3) Acute focal neurological deficit ICD Code: R29.818 (4) Weakness ICD Code: R53.1 Treatment Diagnosis: (1) Cognitive communication deficit ICD Code: R41.841 Onset Date: 10/28/16 SOC Date: October 28, 2016 Precautions Precaution/Isolation: Standard Precautions Fall Level: High Risk 51 or greater Resuscitation Status: Do Not Resuscitate Initial Assessment Reason for Referral: Evaluation and Treat Pertinent Medical History: A-Fib, Depression, Hypertension, Other Rehabilitation Potential: Good Speech Daily Note Subjective Patient states she is feeling a little better, but still having weakness. Training/Instruction Provided Status: Individual treatment Cognition: Attention, Memory, Orientation, Executive functioning Plan: Continue POC Results/Notes Patient was given an alternative version of the corinna cognitive assessment ( MOCA), and scored 21/30 compared to 18/30 yesterday. Time In: 1530 Time Out: 1554 CPT Codes / Units: 27809 Tx Sp lang voice POC POC Problems Identified: Cognition ST Plan: Evaluation-Speech, Speech therapy Frequency of ST: Five times weekly Duration of ST: While on Acute Care Therapy to include: Cognitive retraining Aware of Dx and Prognosis: Yes Aware of Risk & Benefit: Yes Goals Discussed/Agreed: Yes Short Term Goals Short Term Goals 1. Patient to complete visuospatial activities with min assist. 2. Patient to complete alternating attention activities with min assist. 3. patient to recall five words after five minutes independently. STG Time Frame: 7 Days RAYMOND LUBIN October 29, 2016 16:00
--- NOTE | 2016-10-29 16:22 | Diagnostic Imaging Report ---
PROCEDURE: CT angiography of the neck with and without contrast. TECHNIQUE: After intravenous administration of contrast, thin section axial CT angiography of the neck was performed. Source data was reformatted into multiple MIP projections. INDICATION: Right vertebral artery stenosis. COMPARISON STUDY: Carotid ultrasound from yesterday. CT scan of the head from yesterday. FINDINGS: The right vertebral artery is small. No flow is seen in this at the level of C5-6. Flow starts again in the approximately the V2 segment. The intracranial portion of the right vertebral artery is smaller than the left. The takeoff of the great vessels appears normal. Minimal plaque is seen in both carotid bifurcations, the left a little more than the right. No stenosis is present. Incidental note is made of opacification of the right side of the sphenoid sinus. The lung apices are clear. Degenerative changes are present in the spine. 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 There is reconstitution at the V2 level. The cause of this is not identified. No definite dissection is seen however there could be a subacute dissection causing this. This could also be chronic. Recommend clinical correlation. Mild plaque is seen in both carotid arteries. Degenerative changes are present in the spine. Dictated by: Dictated on workstation # [id number]
--- NOTE | 2016-10-29 17:36 | OT Therapy Evaluation (E) ---
POC Plan of Care Problems Identified: Activity Tolerance, ADLs, Balance, Lt UE Coordination, Lt UE Strength, Motor Planning, ROM, Rt UE Strength, Safety Awareness Plan: Evaluation-OT, ADL/Self Care Management, Therapy Exercises, Therapy Activities, Pt/Family/Staff Education, Neuro Re-Education Frequency of OT: Five times weekly Duration of OT: Other (5 days ) Therapy to Include: ADL training, Balance with ADLs, Neuro re-education, Pt/ family education, Therapeutic activities, UE coord. training, UE strengthing Discharge Recommendations: TCU/Skilled NH Pt would benefit from skilled occupational therapy services to improve independence and safety with self care tasks. Pt. Aware of Dx and Prognosis: Yes Pt. Aware of Risk & Benefit: Yes Goals: Discussed with patient, Discussed with family Short Term Goals STG Time Frame: 3 Days STG #1 Pt will complete grooming tasks sitting at EOB with minimal assistance and cueing for upright posture. Intermediate Goals LTG Time Frame: 5 Days Will Dress Upper Extremity: With Min Assistance Will do Tub/Shower Transfer: With Mod Assistance Will Bathe Self: With Mod Assistance Will do Toilet Transfers: With Mod Assistance Inital Evaluation/General Service Date/Time 10/29/16, 17:36 Primary Diagnosis: (1) UTI (urinary tract infection) ICD Code: N39.0 (2) CVA (cerebral vascular accident) ICD Code: I63.9 (3) Acute focal neurological deficit ICD Code: R29.818 (4) Weakness ICD Code: R53.1 Treatment Diagnosis: (1) Lack of coordination ICD Code: R27.9 (2) Weakness ICD Code: R53.1 Onset Date: 10/27/16 Start of Care Date: October 29, 2016 Precaution/Isolation: Standard Precautions Fall Level: High Risk 51 or greater Resuscitation Status: Do Not Resuscitate Pertinent Medical History: A-Fib, Depression, Hypertension, Other Pain Level: 0 Oxygen Needed: Room air Rehabilitation Potential: Good Potential Based On Pt's motivation to get better and family support. Living Status Prior to Admit: Assisted Living ([facility]) Prior to onset, pt reports independence with self care tasks. Able to dress, toilet, and complete grooming tasks by self. Pt reports a two falls within the past two months with legs giving out and loss of balance. Pt has a life alert. Pt cannot get up by herself, requiring assistance from [facility] to assist secondary to pt's high fall risk. Support Persons: Adult Child Entry Into Home: Level Entry Assist Devices: Front Wheel Walker, 4 WW Toilet Type: Raised with grab bars Current Function Assessment Mental Status Patient Orientation: Person, Place, Time, Situation Mental Status: Alert Cognition Attention: Intact Memory: Intact Safety/Judgement: Intact Visual/Perceptual Skills Glassess: Yes Hearing: Impaired Hand Dominance Hand Dominance: Right ROM/Strength ROM Comment RUE WFL, LUE limited shoulder movement. Able to complete full range of elbow flexion/extension and supination/pronation. Pt demonstrates difficulty with opposition secondary to numbness in fingers. Demonstrated some incoordination of movement when reaching out for objects. Able to make a composite fist and extend fingers of left hand. Strength Comment RUE 4-/5. [place] eliminated testing not completed this date for NEDA. Neurological Coordination: Serverely impaired Demonstrated incoordination of movement when reaching out for therapist hand with some noted undershooting and overshooting of target. Balance: Back support (Pt tends to laterally lean to the right when sitting at EOB, requiring stabilization from therapist. ), Falls backwards Endurance Activity Endurance: Fair Bed Mobility/Transfers Bed Mobility: Moderate assist Supine from Sit: Moderate assist Sitting Balance: Falls right, Needs back support ADLs Hand : Feeding Self: Mimimal assist Grooming: Grooming Status: Minimum assist Dressing Dressing: Maximum assist Bathing Bathing- Type of Assistance: Maximum Assist Toileting Toilet Hygiene: Maximum Assist Additional Assessment/Comments The patient presents with decreased strength, lack of coordination and difficulty carrying, handling and manipulating everyday items. Pt presents with no co morbidities affecting performance. Required no modification of assessment or tasks, placing pt at a low complexity level. CPT/G Codes Time In: 13:27 Time Out: 13:50 Total Minutes: 23 (07/13 eval) CPT Codes: 09155 Eval< 20 minutes (07/13) NICKY BATES OT October 29, 2016 17:36
[2016-10-29] MEDS: ACETAMINOPHEN 325 MG TAB (TYLENOL) PO PRN ×2 (18:02→20:42)
--- NOTE | 2016-10-29 18:09 | Progress Note (E) ---
Progress Note 10/29/16 CT ANGIO NECK W WO PROCEDURE: CT angiography of the neck with and without contrast. TECHNIQUE: After intravenous administration of contrast, thin section axial CT angiography of the neck was performed. Source data was reformatted into multiple MIP projections. INDICATION: Right vertebral artery stenosis. COMPARISON STUDY: Carotid ultrasound from yesterday. CT scan of the head from yesterday. FINDINGS: The right vertebral artery is small. No flow is seen in this at the level of C5-6. Flow starts again in the approximately the V2 segment. The intracranial portion of the right vertebral artery is smaller than the left. The takeoff of the great vessels appears normal. Minimal plaque is seen in both carotid bifurcations, the left a little more than the right. No stenosis is present. Incidental note is made of opacification of the right side of the sphenoid sinus. The lung apices are clear. Degenerative changes are present in the spine. 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 There is reconstitution at the V2 level. The cause of this is not identified. No definite dissection is seen however there could be a subacute dissection causing this. This could also be chronic. Recommend clinical correlation. Mild plaque is seen in both carotid arteries. Degenerative changes are present in the spine. Updated patient and daughter on this finding. Perhaps she had a ruptured plaque or a dissection triggering an embolic event cause right-sided stroke. Discussed treatment including statin, aspirin... and she's already on apixaban for atrial fibrillation. Discussed plan to discuss with stroke neurologist in AM if there are any other recommendations. SIRIA CAMP MD October 29, 2016 18:09
--- NOTE | 2016-10-29 18:09 | NUR ---
Pt c/o LLE cramping- Dr. Triana notified and Tylenol given at his request. Pt visiting with daughter, granddaughter and great-grandsons. Pt is pleasant and cooperative. Same weakness in left arm and leg.
--- NOTE | 2016-10-29 19:57 | NUR ---
Assisted patient to commode. Voided 200 cc concentrated wei urine. Pivots to commode. Left side very weak. Pleasant and Cooperative. No skin breakdown noted. Call light within reach. No needs at this time.
--- NOTE | 2016-10-29 20:42 | NUR ---
Tylenol 650 mg and Tramadol 50mg administered for generalized discomfort. Was up to the bedside commode again and voided. Stated that she needs to drink a lot of water because she has a urinary tract infection. Reminded patient that she is correct, but that she may want to slow down, now that it is bedtime, so she can get some sleep. Repositioned in bed.
[2016-10-29] MEDS: INSULIN GLARGINE 1 UNIT/0.01ML (LANTUS) DOSE SC SCH (20:44)
[2016-10-29] MEDS ORDERED: ATORVASTATIN 40 MG (LIPITOR) TABLET PO SCH (21:00)
--- NOTE | 2016-10-30 | NUR ---
Repositioned in bed. Call light within reach.
[2016-10-30 04:00] VITALS: BP 138/80
[2016-10-30] MEDS: INSULIN LISPRO 1 UNIT/0.01 ML (HUMALOG) DOSE SC SCH ×4 (06:02→21:00)
[2016-10-30] MEDS: LEVOTHYROXINE 125 MCG (LEVOTHROID) TABLET PO SCH (06:15)
[2016-10-30] MEDS: PANTOPRAZOLE 40 MG (PROTONIX) TAB PO SCH (06:15)
--- NOTE | 2016-10-30 06:37 | NUR ---
Patient rested at long intervals tonight. Assisted patient to commode this morning and she began very weak and her legs were weak, and she was unable to stand. Was assisted back to bed. Used bedpan without difficulty. Left side remains weak. Hand clinical product manager equal. Still has left leg weakness. Pleasant and Cooperative with cares. Swallows meds without difficulty. Drinks water without difficulty. Call light within reach.
--- NOTE | 2016-10-30 07:35 | NUR ---
Patient sitting up in bed upon shift assessment. Alert and oriented X3. Denies pain, nausea, SOA, or other distress. Patient able to lift left arm but electrical equipment assembler remain unequal. Left leg noted to have severe weakness. Patient states "it is hard to move at all". HR irregular at a rate of 84 bpm. Lung sounds CTAB. No edema noted to BLE. Updated on plan of care for shift including working with therapies. Call light in reach.
[2016-10-30 07:37] VITALS: BP 140/71
--- NOTE | 2016-10-30 09:04 | Progress Note (E) ---
Progress Note SUBJECTIVE Overnight, no major issues reported. SBP 140's-160's. No BM yet. Considerable weakness with transfers per RN report. On exam, awake and interactive, oriented. Expresses a bit of discouragement that her left leg isn't working much. Discussed important role of PT and time. OBJECTIVE Vital Signs Date Time Temp Pulse Resp B/P Pulse Ox O2 Delivery O2 Flow Rate FiO2 10/30/16 07:37 97.0 87 16 140/71 97 Room air I & O 10/29/16 10/30/16 Cumulative From/Thru 19:00 07:00 10/28/16 02:51 - 10/30/16 06:00 Intake Total 437 ml 637 ml 3365 ml Output Total 1825 ml 4075 ml Balance 437 ml -1188 ml -710 ml GEN: Awake, interactive, oriented. NAD at present. HEENT: EOMI, clear sclerae, mildly dry oral mucosa. Still with some left facial droop but continued improvement noted. Speech is improved. CV: Irregular without significant murmur. PULM: CTA B with no R/R/W. ABD: Soft, NT/ND with active bowel sounds. EXTR: No edema. Warm, dry, well-perfused. INTEG: Age related changes. NEURO: On admit, NIH stroke scale score = 7 (1 for mild facial palsy, 2 for left arm, 3 for left leg, 1 for dysarthria.) 05/12: Still has minimal movement of left leg against gravity. Dorsi-and plantar flexion 1/5. Lab-Past 14 Days, 35 Results 10/28/16 03:18: Activated Partial Thromboplast Time 34.3, Alanine Aminotransferase (ALT/SGPT) 21L, Albumin 3.9, Albumin/Globulin Ratio 1.147, Alkaline Phosphatase 64, Anion Gap 11.9, Aspartate Amino Transf (AST/SGOT) 24, BUN/Creatinine Ratio 23H, Basophils # (Auto) 0.0, Basophils (%) (Auto) 0, Blood Urea Nitrogen 18, Calcium Level 9.6, Calcium/Ionized Calcium Ratio 4.2, Calculated Osmolality 273L, Carbon Dioxide Level 29, Chloride Level 98, Creatine Kinase MB 1.1, Creatinine 0.79, Eosinophils # (Auto) 0.1, Eosinophils (%) (Auto) 1, Estimat Glomerular Filtration Rate 83.9, Estimated GFR (Non- 69.3, Free Thyroxine ( T4) Calculated 0.85, Glucose Level 145H, Hematocrit 35.80, Hemoglobin 11.9L, Lymphocytes # (Auto) 1.2, Lymphocytes (%) (Auto) 16L, Mean Corpuscular Hemoglobin 35.3H, Mean Corpuscular Hemoglobin Concent 33.2, Mean Corpuscular Volume 106H, Mean Platelet Volume 10.8H, Monocytes # (Auto) 0.8, Monocytes (%) ( Auto) 11, Neutrophils # (Auto) 5.4, Neutrophils (%) (Auto) 71H, Platelet Count 289, Potassium Level 3.9, Prothromb Time International Ratio 1.1, Prothrombin Time 12.0, Red Blood Count 3.37L, Red Cell Distribution Width 15.8H, Sodium Level 139, Thyroid Stimulating Hormone (TSH) 8.81#H, Total Bilirubin 0.4#, Total Creatine Kinase 46, Total Protein 7.3, Troponin I 0.013, Urine Bacteria 1+ , Urine Bilirubin Negative, Urine Blood Negative, Urine Clarity Clear, Urine Collection Type Clean catch, Urine Color Yellow, Urine Glucose (UA) Negative, Urine Ketones Negative, Urine Leukocyte Esterase 1+H, Urine Microscopic RBC 0-2 , Urine Nitrite Negative, Urine Protein Negative, Urine Specific [place] 1.015, Urine Squamous Epithelial Cells 50-100, Urine Urobilinogen 0.2, Urine WBC 10-20H , Urine pH 7.0, Volume Urine Centrifuged 12 ml, White Blood Count 7.50 10/28/16 04:15: Urine Bacteria Rare, Urine Bilirubin Negative, Urine Blood Negative, Urine Clarity Clear, Urine Collection Type Catheter, Urine Color Yellow, Urine Glucose (UA) Negative, Urine Ketones Negative, Urine Leukocyte Esterase TraceH, Urine Microscopic RBC 0-2, Urine Nitrite Negative, Urine Protein Negative, Urine Specific [place] 1.010, Urine Squamous Epithelial Cells 50-100, Urine Urobilinogen 0.2, Urine WBC 5-10H, Urine pH 6.0, Volume Urine Centrifuged 12 ml 10/29/16 05:20: Albumin 3.7, Anion Gap 13.6, Basophils # (Auto) 0.0, Basophils (%) (Auto) 0, Blood Urea Nitrogen 16, Calcium Level 9.6, Carbon Dioxide Level 30H, Chloride Level 100, Creatinine 0.76, Eosinophils # (Auto) 0.1, Eosinophils (%) (Auto) 2, Estimat Glomerular Filtration Rate 87.7, Estimated GFR (Non- 72.5, Glucose Level 103#, Hematocrit 35.60, Hemoglobin 11.7L, Lymphocytes # ( Auto) 0.8, Lymphocytes (%) (Auto) 14L, Mean Corpuscular Hemoglobin 35.0H, Mean Corpuscular Hemoglobin Concent 32.9, Mean Corpuscular Volume 107H, Mean Platelet Volume 10.9H, Monocytes # (Auto) 0.6, Monocytes (%) (Auto) 10, Neutrophils # (Auto) 4.2, Neutrophils (%) (Auto) 74H, Platelet Count 275, Potassium Level 3.8, Red Blood Count 3.34L, Red Cell Distribution Width 15.9H, Sodium Level 140, White Blood Count 5.71, Cholesterol Level 194, Cholesterol/ HDL Ratio 5.1H, HDL Cholesterol 38L, LDL Cholesterol, Calculated 129, Phosphorus Level 4.8, Triglycerides Level 133, VLDL Cholesterol, Calculated 27 MICRO 10/28 Urine culture Negative to date. IMAGING 10/29/16 CT ANGIO NECK W WO PROCEDURE: CT angiography of the neck with and without contrast. TECHNIQUE: After intravenous administration of contrast, thin section axial CT angiography of the neck was performed. Source data was reformatted into multiple MIP projections. INDICATION: Right vertebral artery stenosis. COMPARISON STUDY: Carotid ultrasound from yesterday. CT scan of the head from yesterday. FINDINGS: The right vertebral artery is small. No flow is seen in this at the level of C5-6. Flow starts again in the approximately the V2 segment. The intracranial portion of the right vertebral artery is smaller than the left. The takeoff of the great vessels appears normal. Minimal plaque is seen in both carotid bifurcations, the left a little more than the right. No stenosis is present. Incidental note is made of opacification of the right side of the sphenoid sinus. The lung apices are clear. Degenerative changes are present in the spine. 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 There is reconstitution at the V2 level. The cause of this is not identified. No definite dissection is seen however there could be a subacute dissection causing this. This could also be chronic. Recommend clinical correlation. Mild plaque is seen in both carotid arteries. Degenerative changes are present in the spine. 10/28/16 ECHO: Prelim: EF 65-70%. RVSP 39 mmHg. 10/28/16 US CAROTID BILATERAL COMPLETE PROCEDURE: US Carotid Duplex Bilateral. TECHNIQUE: Multiple real-time grayscale images were obtained over the carotid arteries in various projections bilaterally. Additional duplex Doppler and color Doppler images were also obtained. INDICATION: CVA, left-sided weakness, hypertension. COMPARISON: None available. FINDINGS: Right carotid circulation: The right common carotid artery is normal in caliber, and there is no significant stenosis. Peak systolic velocity in the right common carotid artery is 90 cm/sec. There is no appreciable atherosclerotic plaque in the carotid bulb and proximal internal carotid artery. The peak systolic velocity in the proximal internal carotid artery is 72 cm/sec. Proximal aspect of the external carotid artery is patent with expected high resistance waveforms, and peak systolic velocity of 85 cm/sec. Left carotid circulation: The left common carotid artery is normal in caliber, and there is no significant stenosis. Peak systolic velocity in the left common carotid artery is 91 cm/sec. There is minimal noncalcified atherosclerotic plaque in the carotid bulb and proximal internal carotid artery, which results in less than 50% luminal narrowing by medley scale imaging. The peak systolic velocity in the proximal internal carotid artery is 81 cm/sec. Proximal aspect of the external carotid artery is patent with expected high resistance waveforms, and peak systolic velocity of 97 cm/ sec. Vertebral arteries: Flow in the left vertebral artery is antegrade. There appears to be bidirectional flow within the right vertebral artery, suggestive of potential stenosis within the more central subclavian/brachiocephalic. IMPRESSION: 1. Less than 50% stenosis of the proximal left ICA due to minimal atherosclerotic plaquing. 2. Normal right ICA. 3. Suggestion of bidirectional flow in the right vertebral artery, raising suspicion for stenosis within the right brachiocephalic/subclavian artery. Consider CTA of the neck for further evaluation. 10/28/16 CT HEAD WO PROCEDURE: CT head without contrast. TECHNIQUE: Multiple contiguous axial images were obtained through the brain without the use of intravenous contrast. INDICATION: Left-sided weakness. Stroke protocol. Findings. There are no intracranial hemorrhages. No mass effect. No extra-axial fluid collection. There is cortical atrophy noted. Low density areas noted in the basal ganglia more prominent on the left consistent with small old lacunar infarct. There is opacification of the right sphenoid sinus air cell. IMPRESSION: 1. Generalized atrophy with finding consistent with old lacunar infarcts. 2. No evidence of acute ischemic or hemorrhagic infarct. 3. Opacification of the sphenoid air cell on the right again noted unchanged since 08/23/2016. ASSESSMENT Tsering Pardo is a 86 year old female admitted from ED 10/28 for left sided arm and leg weakness attributed to new stroke. She presented > 4 hours after symptom onset. She has underlying CVD and prior history of thalamic lacunar infarct, but in the left basal ganglia, not right. She had mild evidence for UTI as well on admit. She has other chronic problems. PLAN * Stroke: Left sided weakness in arm and leg noted on admit. Has prior lacunar infarct noted on CT, but L > R and left sided weakness is new. Unable to tolerate MRI. Already on apixaban for stroke prophylaxis. Added aspirin 10/28. Echo and carotid doppler as noted suggesting right vertebral artery occlusion which may represent an embolic event triggering this stroke. Lipid profile as noted. Atorvastatin added. PT/OT/ST eval and treat. Can order MRI with sedation after discharge. (She prefers doing it in [place] if possible.) * Vertebral Artery Stenosis, Right: CT neck angio as noted. Already on apixaban. Added aspirin, atorvastatin. * UTI: Not reportedly symptomatic other than weakness. Urine culture negative. Culture from 10/15 was also negative. Had already completed a course of ciprofloxacin the week prior to this admit for UTI. Amoxicillin/clavulanate x 3 days, then stop antibiotic altogether. * Deconditioning, Stroke: PT/OT eval and treat. * F/E/N: Diabetic, mechanical soft. Peripheral IV. I&O. * Prophylaxis: Apixaban * Code status: DNR * Dispo: Inpatient. Expect 3 day stay. Likely transfer to [facility] for 3-4 week rehab course. CHRONIC ISSUES * HLD: Mild on the basis of lipid profile this admit. Started atorvastatin. * Hypothyroidism: TSH elevated at 8.81. Had been 5.44 in July. T4 low end of normal at 0.85. Increased dose of levothyroxine to 125 mcg. Check TSH in 4 weeks. * CVD: Old lacunar infarcts noted in basal ganglia L > R on CT scan this admit. * Insomnia: Observe * GERD: Pantoprazole (sub for esomeprazole) * Diabetes Mellitus Type II: Basal insulin, sliding scale. * Atrial fibrillation: Apixaban, digoxin. * Fibromyalgia, OA: Azathioprine. Follows with Dr. Kinney in [place]. * Depression: Duloxetine * Chronic Pain: tramadol * CKD Stage III: Per H&P... Cr on admit 0.79. Clearance 67. Monitor. SIRIA CAMP MD October 30, 2016 08:41
--- NOTE | 2016-10-30 09:18 | ST Daily Note (E) ---
Initial Review Service Date/Time 10/30/16, 09:16 Primary Diagnosis: (1) UTI (urinary tract infection) ICD Code: N39.0 (2) CVA (cerebral vascular accident) ICD Code: I63.9 (3) Acute focal neurological deficit ICD Code: R29.818 (4) Weakness ICD Code: R53.1 Treatment Diagnosis: (1) Cognitive communication deficit ICD Code: R41.841 Onset Date: 10/28/16 SOC Date: October 28, 2016 Precautions Precaution/Isolation: Standard Precautions Fall Level: High Risk 51 or greater Resuscitation Status: Do Not Resuscitate Initial Assessment Reason for Referral: Evaluation and Treat Pertinent Medical History: A-Fib, Depression, Hypertension, Other Rehabilitation Potential: Good Speech Daily Note Subjective Patient states she is doing "about the same" Training/Instruction Provided Status: Individual treatment Cognition: Attention, Memory, Orientation Plan: Continue POC Results/Notes Patient was oriented x6. She completed 3 word memory independently, and 4 word memory with 78% accuracy. She completed repetition of 3 numbers backwards independently. She was able to name an average of 17 words in a given category within one minute. Time In: 856 Time Out: 920 CPT Codes / Units: 66175 Tx Sp lang voice POC POC Problems Identified: Cognition ST Plan: Evaluation-Speech, Speech therapy Frequency of ST: Five times weekly Duration of ST: While on Acute Care Therapy to include: Cognitive retraining Aware of Dx and Prognosis: Yes Aware of Risk & Benefit: Yes Goals Discussed/Agreed: Yes Short Term Goals Short Term Goals 1. Patient to complete visuospatial activities with min assist. 2. Patient to complete alternating attention activities with min assist. 3. patient to recall five words after five minutes independently. STG Time Frame: 7 Days RAYMOND LUBIN October 30, 2016 09:18
[2016-10-30] MEDS: MAGNESIUM OXIDE 400 MG (MAG-OX) TAB PO SCH (09:24)
[2016-10-30] MEDS: DULoxetine 30 MG (CYMBALTA) CAPSULE PO SCH (09:24)
[2016-10-30] MEDS: ASPIRIN 81 MG CHEW (LOW-DOSE) PO SCH (09:25)
[2016-10-30] MEDS: VALSARTAN 160 MG (DIOVAN) TABLET PO SCH (09:25)
[2016-10-30] MEDS: DIGOXIN 0.125 MG (LANOXIN) TAB PO SCH (09:25)
[2016-10-30] MEDS: azaTHIOprine (IMURAN) 50 MG TAB PO SCH ×2 (09:25→21:22)
[2016-10-30] MEDS: APIXABAN 2.5 MG (ELIQUIS) TABLET PO SCH ×2 (09:25→21:22)
[2016-10-30] MEDS: HYDROCHLOROTHIAZIDE 12.5 MG (HCTZ) TABLET PO SCH (09:25)
[2016-10-30] MEDS: AMOXICILLIN/CLAVULANATE 875MG-125MG (AUGMENTIN) TABLET PO SCH ×2 (09:25→21:22)
[2016-10-30 11:16] VITALS: BP 147/81
--- NOTE | 2016-10-30 13:26 | NUR ---
Pt. has been accepted for skilled care at [facility]. Pt. will go to house 801/room 108/ext. 311. Pt. and family have been informed of this. Pt. and family would like for [facility] to transport Pt. at discharge. Answered questions for daughter about skilled care.
--- NOTE | 2016-10-30 14:03 | PT Daily Note Inpatient (E) ---
PT Daily Treatment Service Date/Time 10/30/16, 13:58 Medical Diagnosis: (1) UTI (urinary tract infection) ICD Code: N39.0 (2) CVA (cerebral vascular accident) ICD Code: I63.9 (3) Acute focal neurological deficit ICD Code: R29.818 (4) Weakness ICD Code: R53.1 Physical Therapy: (1) CVA (cerebral vascular accident) ICD Code: I63.9 (2) Weakness ICD Code: R53.1 Precaution/Isolation: Standard Precautions Resuscitation Status: Do Not Resuscitate Fall Level: High Risk 51 or greater Subjective Patient resting in bed had just met with long term care social worker, patient will being transferring to [facility] for further rehabilitation. The patient is having increased difficulty with transfers this date secondary to left lower extremity giving out. Pt notes pain in LLE and UE this date. She was agreeable to transferring to recliner. Oxygen Delivery: Room air O2 liters/minute: 0 Treatments Sit, Stand, Supine: Long Sitting Extremity: Left Lower Extremity Assistance: AAROM, PROM, Stretching Exercise: AP, QS, LAQ Transfers Pivot Transfers: Moderate Assistance (of 2 with verbal cues for upright standing. ) Gait Distance Walked: Stand pivot transfer to right side from bed to recliner. Education/Plan Education Patient educated to keep left arm in sight to improve her awareness of it. Educated patient and nursing staff on blocking and guiding techniques in LLE for transfers to prevent LLE from buckling. Assessment Patient demonstrated improved ability to maintain upright sitting this date. Mod assist for transfer. Patient demonstrates extensive hip, knee and ankle weakness in LLE. Safety Awareness: Intact Response to Treatment: Improving Plan Patient would benefit from additional therapy services. Patient will be seen: Daily Wednesday-Wednesday Discharge Recommendations: TCU/Skilled NH Coding Time In: 1325 Time Out: 1354 Total Minutes: 29 Charges: 29516 Neurmus Exer 15 min, 81630 Ther Activity Patient resting in recliner with LE elevated, pillow placed under right and left arm, call light in right hand. NENITA NARANJO PT October 30, 2016 14:03
[2016-10-30] MEDS ORDERED: TRM50T PO (14:30)
[2016-10-30] MEDS ORDERED: HYDR12.56 PO (14:30)
[2016-10-30] MEDS ORDERED: ASP81CT PO (14:30)
[2016-10-30] MEDS ORDERED: DOCU100C8 PO (14:30)
[2016-10-30] MEDS ORDERED: ONDAN4ODT PO (14:30)
[2016-10-30] MEDS ORDERED: LEVO125T70 PO (14:30)
[2016-10-30] MEDS ORDERED: POLY17PO2 PO (14:30)
[2016-10-30] MEDS ORDERED: AC325T PO (14:30)
[2016-10-30] MEDS ORDERED: BSC10SU PR (14:30)
[2016-10-30 15:27] VITALS: BP 151/74
--- NOTE | 2016-10-30 17:34 | OT Daily Note Inpatient (E) ---
OT Daily Treatment Service Date/Time 10/30/16, 17:34 Primary Diagnosis: (1) UTI (urinary tract infection) ICD Code: N39.0 (2) CVA (cerebral vascular accident) ICD Code: I63.9 (3) Acute focal neurological deficit ICD Code: R29.818 (4) Weakness ICD Code: R53.1 Treatment Diagnosis: (1) Lack of coordination ICD Code: R27.9 (2) Weakness ICD Code: R53.1 Onset Date: 10/27/16 Start of Care Date: October 29, 2016 Precaution/Isolation: Standard Precautions Fall Level: High Risk 51 or greater Resuscitation Status: Do Not Resuscitate Current Activity: Agrees to participate Pt reports leg is not doing too good. Left side still feels numb. Going to the [employer] tomorrow. Pain Level: 4 Pain Location/Comment LLE Oxygen Needed: Room air O2 liters/minute: 0 Current Function Assessment Cognition Attention: Intact Memory: Intact Safety/Judgement: Intact Visual/Perceptual Skills Glassess: Yes Hearing: Impaired Hand Dominance Hand Dominance: Right Treatments Gross Motor Skill Exercise U E Gross Motor Skills U E : Comment Pt completed bed mobility with maximum assistance of LLE and moderate assistance to transfer from supine to sitting at EOB. Participated in NMR focused on core stability and posture. Noted- pt tends to lean right requiring minimal stabilization from therapist and cueing. Pt able to sit at EOB for 3 minutes before requesting to get back into bed. Moderate assistance for bed mobility. Maximum assistance to position pt higher in bed. Sitting up in bed, pt participated in NMR focused on coordination and kinesthetic sense of LUE. Completed elbow flexion and extension 10 times with focused on controlled, coordinated movement. Noted- with repetition, pt grew tired demonstrating more difficulty maintaining controlled movement. 20 composite fist and extension of fingers. Pt reached out of midline for objects provided by therapist. Able to complete 10 times. Educated and discussed continuation of incorporating LUE during daily activities to promote motor re-learning. Pillows positioned under pt's BUE's with call light in right hand following session. Education/Assessment Rehabilitation Potential: Good Improved core stability sitting at EOB this date. Pt grew tired with active movements of LUE. POC Plan of Care Problems Identified: Activity Tolerance, ADLs, Balance, Lt UE Coordination, Lt UE Strength, Motor Planning, ROM, Rt UE Strength, Safety Awareness Plan: Evaluation-OT, ADL/Self Care Management, Therapy Exercises, Therapy Activities, Pt/Family/Staff Education, Neuro Re-Education Frequency of OT: Five times weekly Duration of OT: Other (5 days ) Therapy to Include: ADL training, Balance with ADLs, Neuro re-education, Pt/ family education, Therapeutic activities, UE coord. training, UE strengthing Discharge Recommendations: TCU/Skilled NH Goals: Discussed with patient, Discussed with family Short Term Goals STG Time Frame: 3 Days Roll Builder Goals LTG Time Frame: 5 Days CPT/G Codes Time In: 16:45 Time Out: 17:13 Total Minutes: 28 (08/18 NMR) CPT Codes: 36664 Neuromusc Ex (08/18) NICKY BATES OT October 30, 2016 17:34
--- NOTE | 2016-10-30 17:59 | NUR ---
Patient sitting up in bed conversing with family. Denies pain or distress. Remains weak on left side. ROM performed hourly to left leg. Transfers to chair on one occasion throughout day shift with 2 assist, walker, and gait belt. PRN Colace provided for constipation. No bm resulted. Discharge coordinated by social work for 1300 tomorrow to [place] [id number]. Using call light appropriately when needing assistance. Will continue to monitor.
[2016-10-30] MEDS: ACETAMINOPHEN 325 MG TAB (TYLENOL) PO PRN (18:21)
--- NOTE | 2016-10-30 20:00 | NUR ---
Resting in bed. Alert and oriented. No discomforts at this time. Has generalized weakness. Does not want to use commode as legs are weak. Uses bedpan without without difficulty. Does not deny any discomforts. Takes medications without difficulty. Swallows without difficulty. Call light within reach.
[2016-10-30 20:03] VITALS: BP 145/79
[2016-10-30] MEDS ORDERED: PRAVASTATIN 20 MG (PRAVACHOL) TABLET PO SCH (21:00)
--- NOTE | 2016-10-30 21:23 | NUR ---
Tramadol 50 mg administered for leg discomfort. HS cares given. Call light within reach.
[2016-10-30] MEDS: INSULIN GLARGINE 1 UNIT/0.01ML (LANTUS) DOSE SC SCH (21:24)
[2016-10-30 23:32] VITALS: BP 140/83
--- NOTE | 2016-10-31 | NUR ---
Turned and repositioned. Voids on bedpan. Urine concentrated wei. Takes fluids well without difficulty.
[2016-10-31 03:45] VITALS: BP 139/71
[2016-10-31] MEDS: INSULIN LISPRO 1 UNIT/0.01 ML (HUMALOG) DOSE SC SCH ×2 (06:12→11:30)
--- NOTE | 2016-10-31 06:33 | NUR ---
Rested well at long intervals tonight. Turns well in bed. No skin breakdown. Voids well on bedpan. Patient remains weak and does not want to get up and use commode. Takes fluids well. No further pain med medication needed tonight. Pleasant. Alert and oriented. No concerns at this time. Call light within reach.
[2016-10-31] MEDS: PANTOPRAZOLE 40 MG (PROTONIX) TAB PO SCH (06:38)
[2016-10-31] MEDS: LEVOTHYROXINE 125 MCG (LEVOTHROID) TABLET PO SCH (06:41)
--- NOTE | 2016-10-31 07:41 | Discharge Instructions (E) ---
Discharge Instructions Instructions * You were evaluated and treated for stroke. Aspirin and pravastatin were added to your regimen to help prevent a recurrent stroke. Review the provided handouts for details. * The combination of aspirin and apixaban (Eliquis) can increase your risk of bleeding. Be sure to report any increased bloody noses, blood in your sputum, blood in urine or stool, or any other concerns. * Your thyroid test (TSH) has been rising and this suggests your dose of thyroid hormone should be increased. Your dose was increased 125 mcg this admission and you should have your TSH checked again in about 4 weeks. * You completed a 3-day course of Augmentin for urinary tract infection. You further antibiotic is needed. Be sure to report to your primary care doctor if you have symptoms of urinary tract infection again. Review the provided handout for details. * You are being discharged to [facility] to [facility] further in [facility] where you will receive physical, occupational, and speech therapy. Activity Instructions As tolerated. Doctor's Appointment Follow-up with your primary care doctor in 3-5 days. Discharge Diet: Carbohydrate controlled SIRIA CAMP MD October 31, 2016 07:40
[2016-10-31 08:12] VITALS: BP 133/77
[2016-10-31] MEDS: DULoxetine 30 MG (CYMBALTA) CAPSULE PO SCH (08:54)
[2016-10-31] MEDS: DIGOXIN 0.125 MG (LANOXIN) TAB PO SCH (08:54)
[2016-10-31] MEDS: MAGNESIUM OXIDE 400 MG (MAG-OX) TAB PO SCH (08:55)
[2016-10-31] MEDS: VALSARTAN 160 MG (DIOVAN) TABLET PO SCH (08:55)
[2016-10-31] MEDS: APIXABAN 2.5 MG (ELIQUIS) TABLET PO SCH (08:56)
[2016-10-31] MEDS: ASPIRIN 81 MG CHEW (LOW-DOSE) PO SCH (08:57)
[2016-10-31] MEDS: azaTHIOprine (IMURAN) 50 MG TAB PO SCH (08:57)
[2016-10-31] MEDS: HYDROCHLOROTHIAZIDE 12.5 MG (HCTZ) TABLET PO SCH (08:57)
[2016-10-31] MEDS: ACETAMINOPHEN 325 MG TAB (TYLENOL) PO PRN (08:59)
--- NOTE | 2016-10-31 09:24 | NUR ---
Frequent voiding small amounts. Bladder scan done - 51cc's scanned. Dr. Triana notified of results.
--- NOTE | 2016-10-31 10:24 | Discharge Summary (E) ---
Discharge Summary (E) Admit Date/Time October 28, 2016 at 05:32 Discharge Date/Time October 31, 2016 Admitting Provider Devin Conroy MD Primary Care Provider Luis Fernando Lopez MD Attending Provider Devin Conroy MD, Michael MD Consulting Provider History and Present Illness Tsering Pardo is a 86 year old female admitted from ED 10/28 for left sided arm and leg weakness attributed to new stroke. She presented > 4 hours after symptom onset. She has underlying CVD and prior history of thalamic lacunar infarct, but in the left basal ganglia, not right. She had mild evidence for UTI as well on admit. She has other chronic problems. She was found to have an occlusion in the right vertebral artery and though it cannot be definitively determined, it is possible she had an atherosclerotic event at that level triggering an embolic stroke. She was already on apixaban for stroke prophylaxis due to atrial fibrillation. Low dose aspirin and pravastatin (low dose because of history of fibromyalgia) were added. She was discharged to [facility] for 3-4 week rehab with PT/OT/ST. Hospital Course and Treatment * Stroke: Left sided weakness in arm and leg noted on admit. Has prior lacunar infarct noted on CT, but L > R and left sided weakness is new. Unable to tolerate MRI. Already on apixaban for stroke prophylaxis. Added aspirin 10/28. Echo and carotid doppler as noted suggesting right vertebral artery occlusion which may represent an embolic event triggering this stroke. Lipid profile as noted. Atorvastatin added. PT/OT/ST eval and treat. Can order MRI with sedation after discharge if further characterization of stroke is desired. (She prefers doing it in [place] if needed.) * Vertebral Artery Stenosis, Right: CT neck angio as noted. Already on apixaban. Added aspirin, pravastatin. * UTI: Resolved. Not reportedly symptomatic other than weakness. Urine culture negative. Culture from 10/15 was also negative. Had already completed a course of ciprofloxacin the week prior to this admit for UTI. Amoxicillin/clavulanate x 3 days, then stop antibiotic altogether. * Deconditioning, Stroke: PT/OT eval and treat. Continue in skilled care. * F/E/N: Diabetic diet. Speech therapy did not recommend any modifications. * Prophylaxis: Apixaban * Code status: DNR * Dispo: Inpatient. Discharged to [facility] for further rehab in skilled care. CHRONIC ISSUES * HLD: Mild on the basis of lipid profile this admit. Started atorvastatin but switched to pravastatin because of history of fibromyalgia... hoping to minimize risk of statin-induced myalgia. * Hypothyroidism: TSH elevated at 8.81. Had been 5.44 in July. T4 low end of normal at 0.85. Increased dose of levothyroxine to 125 mcg. Check TSH in 4 weeks. * CVD: Old lacunar infarcts noted in basal ganglia L > R on CT scan this admit. * PVD: On the basis of carotid doppler and CT neck angio. Aspirin, pravastatin. * Insomnia: Observe * GERD: Pantoprazole (sub for esomeprazole) * Diabetes Mellitus Type II: Basal insulin, sliding scale. * Atrial fibrillation: Apixaban, digoxin. * Fibromyalgia, OA: Azathioprine. Follows with Dr. Kinney in [place]. * Depression: Duloxetine * Chronic Pain: tramadol * CKD Stage III: Per H&P... Cr on admit 0.79. Clearance 67. Discharge Physicial Exam General Vital Signs Date Time Temp Pulse Resp B/P Pulse Ox O2 Delivery O2 Flow Rate FiO2 10/31/16 08:12 98.1 71 20 133/77 95 Room air 0.00 GEN: Awake, interactive, oriented. NAD at present. HEENT: EOMI, clear sclerae, mildly dry oral mucosa. Still with some left facial droop but continued improvement noted. Speech is improved. CV: Irregular without significant murmur. PULM: CTA B with no R/R/W. ABD: Soft, NT/ND with active bowel sounds. EXTR: No edema. Warm, dry, well-perfused. INTEG: Age related changes. NEURO: On admit, NIH stroke scale score = 7 (1 for mild facial palsy, 2 for left arm, 3 for left leg, 1 for dysarthria.) 05: Still has minimal movement of left leg against gravity. Dorsi-and plantar flexion 1/5. Weight: 79.8 kg Laboratory/Radiology Data Laboratory Results-14 Days 10/28/16 03:18: Activated Partial Thromboplast Time 34.3, Alanine Aminotransferase (ALT/SGPT) 21L, Albumin 3.9, Albumin/Globulin Ratio 1.147, Alkaline Phosphatase 64, Anion Gap 11.9, Aspartate Amino Transf (AST/SGOT) 24, BUN/Creatinine Ratio 23H, Basophils # (Auto) 0.0, Basophils (%) (Auto) 0, Blood Urea Nitrogen 18, Calcium Level 9.6, Calcium/Ionized Calcium Ratio 4.2, Calculated Osmolality 273L, Carbon Dioxide Level 29, Chloride Level 98, Creatine Kinase MB 1.1, Creatinine 0.79, Eosinophils # (Auto) 0.1, Eosinophils (%) (Auto) 1, Estimat Glomerular Filtration Rate 83.9, Estimated GFR (Non- 69.3, Free Thyroxine ( T4) Calculated 0.85, Glucose Level 145H, Hematocrit 35.80, Hemoglobin 11.9L, Lymphocytes # (Auto) 1.2, Lymphocytes (%) (Auto) 16L, Mean Corpuscular Hemoglobin 35.3H, Mean Corpuscular Hemoglobin Concent 33.2, Mean Corpuscular Volume 106H, Mean Platelet Volume 10.8H, Monocytes # (Auto) 0.8, Monocytes (%) ( Auto) 11, Neutrophils # (Auto) 5.4, Neutrophils (%) (Auto) 71H, Platelet Count 289, Potassium Level 3.9, Prothromb Time International Ratio 1.1, Prothrombin Time 12.0, Red Blood Count 3.37L, Red Cell Distribution Width 15.8H, Sodium Level 139, Thyroid Stimulating Hormone (TSH) 8.81#H, Total Bilirubin 0.4#, Total Creatine Kinase 46, Total Protein 7.3, Troponin I 0.013, Urine Bacteria 1+ , Urine Bilirubin Negative, Urine Blood Negative, Urine Clarity Clear, Urine Collection Type Clean catch, Urine Color Yellow, Urine Glucose (UA) Negative, Urine Ketones Negative, Urine Leukocyte Esterase 1+H, Urine Microscopic RBC 0-2 , Urine Nitrite Negative, Urine Protein Negative, Urine Specific Barclay 1.015, Urine Squamous Epithelial Cells 50-100, Urine Urobilinogen 0.2, Urine WBC 10-20H , Urine pH 7.0, Volume Urine Centrifuged 12 ml, White Blood Count 7.50 10/28/16 04:15: Urine Bacteria Rare, Urine Bilirubin Negative, Urine Blood Negative, Urine Clarity Clear, Urine Collection Type Catheter, Urine Color Yellow, Urine Glucose (UA) Negative, Urine Ketones Negative, Urine Leukocyte Esterase TraceH, Urine Microscopic RBC 0-2, Urine Nitrite Negative, Urine Protein Negative, Urine Specific Barclay 1.010, Urine Squamous Epithelial Cells 50-100, Urine Urobilinogen 0.2, Urine WBC 5-10H, Urine pH 6.0, Volume Urine Centrifuged 12 ml 10/29/16 05:20: Albumin 3.7, Anion Gap 13.6, Basophils # (Auto) 0.0, Basophils (%) (Auto) 0, Blood Urea Nitrogen 16, Calcium Level 9.6, Carbon Dioxide Level 30H, Chloride Level 100, Creatinine 0.76, Eosinophils # (Auto) 0.1, Eosinophils (%) (Auto) 2, Estimat Glomerular Filtration Rate 87.7, Estimated GFR (Non- 72.5, Glucose Level 103#, Hematocrit 35.60, Hemoglobin 11.7L, Lymphocytes # ( Auto) 0.8, Lymphocytes (%) (Auto) 14L, Mean Corpuscular Hemoglobin 35.0H, Mean Corpuscular Hemoglobin Concent 32.9, Mean Corpuscular Volume 107H, Mean Platelet Volume 10.9H, Monocytes # (Auto) 0.6, Monocytes (%) (Auto) 10, Neutrophils # (Auto) 4.2, Neutrophils (%) (Auto) 74H, Platelet Count 275, Potassium Level 3.8, Red Blood Count 3.34L, Red Cell Distribution Width 15.9H, Sodium Level 140, White Blood Count 5.71, Cholesterol Level 194, Cholesterol/ HDL Ratio 5.1H, HDL Cholesterol 38L, Hemoglobin A1c 6.7H, LDL Cholesterol, Calculated 129, Phosphorus Level 4.8, Triglycerides Level 133, VLDL Cholesterol , Calculated 27 MICRO 10/28 Urine culture Negative to date. IMAGING 10/29/16 CT ANGIO NECK W WO PROCEDURE: CT angiography of the neck with and without contrast. TECHNIQUE: After intravenous administration of contrast, thin section axial CT angiography of the neck was performed. Source data was reformatted into multiple MIP projections. INDICATION: Right vertebral artery stenosis. COMPARISON STUDY: Carotid ultrasound from yesterday. CT scan of the head from yesterday. FINDINGS: The right vertebral artery is small. No flow is seen in this at the level of C5-6. Flow starts again in the approximately the V2 segment. The intracranial portion of the right vertebral artery is smaller than the left. The takeoff of the great vessels appears normal. Minimal plaque is seen in both carotid bifurcations, the left a little more than the right. No stenosis is present. Incidental note is made of opacification of the right side of the sphenoid sinus. The lung apices are clear. Degenerative changes are present in the spine. 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 There is reconstitution at the V2 level. The cause of this is not identified. No definite dissection is seen however there could be a subacute dissection causing this. This could also be chronic. Recommend clinical correlation. Mild plaque is seen in both carotid arteries. Degenerative changes are present in the spine. 10/28/16 ECHO: Prelim: EF 65-70%. RVSP 39 mmHg. 10/28/16 US CAROTID BILATERAL COMPLETE PROCEDURE: US Carotid Duplex Bilateral. TECHNIQUE: Multiple real-time grayscale images were obtained over the carotid arteries in various projections bilaterally. Additional duplex Doppler and color Doppler images were also obtained. INDICATION: CVA, left-sided weakness, hypertension. COMPARISON: None available. FINDINGS: Right carotid circulation: The right common carotid artery is normal in caliber, and there is no significant stenosis. Peak systolic velocity in the right common carotid artery is 90 cm/sec. There is no appreciable atherosclerotic plaque in the carotid bulb and proximal internal carotid artery. The peak systolic velocity in the proximal internal carotid artery is 72 cm/sec. Proximal aspect of the external carotid artery is patent with expected high resistance waveforms, and peak systolic velocity of 85 cm/sec. Left carotid circulation: The left common carotid artery is normal in caliber, and there is no significant stenosis. Peak systolic velocity in the left common carotid artery is 91 cm/sec. There is minimal noncalcified atherosclerotic plaque in the carotid bulb and proximal internal carotid artery, which results in less than 50% luminal narrowing by medley scale imaging. The peak systolic velocity in the proximal internal carotid artery is 81 cm/sec. Proximal aspect of the external carotid artery is patent with expected high resistance waveforms, and peak systolic velocity of 97 cm/ sec. Vertebral arteries: Flow in the left vertebral artery is antegrade. There appears to be bidirectional flow within the right vertebral artery, suggestive of potential stenosis within the more central subclavian/brachiocephalic. IMPRESSION: 1. Less than 50% stenosis of the proximal left ICA due to minimal atherosclerotic plaquing. 2. Normal right ICA. 3. Suggestion of bidirectional flow in the right vertebral artery, raising suspicion for stenosis within the right brachiocephalic/subclavian artery. Consider CTA of the neck for further evaluation. 10/28/16 CT HEAD WO PROCEDURE: CT head without contrast. TECHNIQUE: Multiple contiguous axial images were obtained through the brain without the use of intravenous contrast. INDICATION: Left-sided weakness. Stroke protocol. Findings. There are no intracranial hemorrhages. No mass effect. No extra-axial fluid collection. There is cortical atrophy noted. Low density areas noted in the basal ganglia more prominent on the left consistent with small old lacunar infarct. There is opacification of the right sphenoid sinus air cell. IMPRESSION: 1. Generalized atrophy with finding consistent with old lacunar infarcts. 2. No evidence of acute ischemic or hemorrhagic infarct. 3. Opacification of the sphenoid air cell on the right again noted unchanged since 08/23/2016. Discharge Disposition Discharged to [facility] for further rehab in skilled care. Instructions * You were evaluated and treated for stroke. Aspirin and pravastatin were added to your regimen to help prevent a recurrent stroke. Review the provided handouts for details. * The combination of aspirin and apixaban (Eliquis) can increase your risk of bleeding. Be sure to report any increased bloody noses, blood in your sputum, blood in urine or stool, or any other concerns. * Your thyroid test (TSH) has been rising and this suggests your dose of thyroid hormone should be increased. Your dose was increased 125 mcg this admission and you should have your TSH checked again in about 4 weeks. * You completed a 3-day course of Augmentin for urinary tract infection. You further antibiotic is needed. Be sure to report to your primary care doctor if you have symptoms of urinary tract infection again. Review the provided handout for details. * You are being discharged to [facility] to recover further in care home where you will receive physical, occupational, and speech therapy. Activity Instructions As tolerated. Appointments Follow-up with your primary care doctor in 3-5 days. Discharge Diet: Carbohydrate controlled Discharge Medications New Medications: Acetaminophen (Acetaminophen) 325 Mg Tablet 650 MG PO Q6H PRN PAIN #0 Ref 0 TAB Aspirin (Baby Aspirin) 81 Mg Tab.chew 81 MG PO DAILY #0 Ref 0 TAB Bisacodyl (Dulcolax) 10 Mg Supp 10 MG MT DAILY PRN CONSTIPATION #0 Ref 0 SUPP Docusate Sodium (Docusate Sodium) 100 Mg Capsule 100 MG PO BID PRN CONSTIPATION #0 Ref 0 CAP Hydrochlorothiazide (Hydrochlorothiazide) 12.5 Mg Tablet 12.5 MG PO DAILY #30 Ref 0 TAB Levothyroxine Sodium (Levothyroxine Sodium) 125 Mcg Tablet 125 MCG PO DAILY@0700 #30 Ref 0 TAB Ondansetron HCl (Zofran ODT) 4 Mg Tab.rapdis 4 MG PO Q6HR PRN NAUSEA/VOMITING #15 Ref 0 TAB Polyethylene Glycol 3350 (Miralax) 17 Gm Powd.pack 17 GM PO DAILY PRN CONSTIPATION #0 Ref 0 PACKET Continued Medications: Acetaminophen/Diphenhydramine (Acetaminophen PM Caplet) 1 Each Tablet 1 EACH PO HS PRN SLEEP Ref 0 TAB Apixaban (Eliquis) 5 Mg Tablet 5 MG PO BID TAB Ascorbic Acid (Vitamin C) 500 Mg Tablet 1000 MG PO BID TAB Azathioprine (Azathioprine) 50 Mg Tablet 100 MG PO BID TAB Digoxin (Digoxin) 125 Mcg Tablet 125 MCG PO DAILY TAB Duloxetine HCl (Cymbalta) 30 Mg Capsule.dr 30 MG PO DAILY Esomeprazole Magnesium (Nexium) 40 Mg Capsule.dr 40 MG PO DAILY@0700 #0 Ref 0 CAP Insulin Glargine,Hum.rec.anlog (Toujeo Solostar) 300 Unit/1 Ml Insuln.pen 35 UNIT SQ HS #0 Ref 0 PEN Magnesium Oxide (Magnesium) 400 Mg Tablet 400 MG PO DAILY TAB Multivitamins-Min/Fa/Ginkgo (One Daily For Women 50+ Adv Tb) 1 Each Tablet 1 EACH PO DAILY TAB Olmesartan/Hydrochlorothiazide (Olmesartan-HCTZ 40-12.5 mg Tab) 1 Each Tablet 1 EACH PO DAILY TAB Potassium Gluconate (Potassium) 99 Mg Tablet 99 MG PO DAILY TAB Tramadol HCl (Tramadol HCl) 50 Mg Tablet 50 MG PO Q6H PRN PAIN #15 Ref 0 TAB (This prescription has been renewed) Discontinued Medications: Hydrocodone/Acetaminophen ([place] 5mg/325mg) 1 Each Tablet 1 TAB PO Q4H PRN PAIN Ref 0 TAB Levothyroxine Sodium (Synthroid) 100 Mcg Tablet 100 MCG PO DAILY@0700 Follow up New Orders: RENAL PROFILE - Within 1 week TSH (THYROID STIMULATING HORM) - 11/30/16 Discharge Diagnosis See list above. Problems: Copies to: End of Report . SIRIA CAMP MD October 31, 2016 10:24
--- NOTE | 2016-10-31 11:40 | NUR ---
Back to room after shower - tolerated well. Transfers poorly - no support or strength in left leg. Is able to help raise up slightly and pivot with right leg. Maximum assist of 2 and gait belt to transfer. SL d'cd prior to shower this morning. Report called to nurse Manoj nye [facility]. Daughter at bedside.
[2016-10-31 12:02] VITALS: BP 142/71
--- NOTE | 2016-10-31 13:12 | NUR ---
Dismissed to [facility] via van. Daughter accompanies to van. Alert and oriented. Cooperative and pleasant. Speech not slurred. Swallows food and medications without choking. Appropriate responses. Left arm scale technician weak but able to move arm up and down. Unable to move left leg or foot. Resp. even and unlabored. No pain meds since Tylenol with morning meds.
== END 2016-10-31 13:12 | DRG 65 ==
LOC: EDUNIT# 02:36 → ED 02:39 → MED/SURG 05:32
PROVIDERS: ADMIT Pediatrics; ATTEND Pediatrics
DX: I63.112 Cerebral infarction due to embolism of left vertebral artery (principal); N39.0 Urinary tract infection, site not specified; G81.94 Hemiplegia, unspecified affecting left nondominant side; Z66 Do not resuscitate; R29.810 Facial weakness; E03.9 Hypothyroidism, unspecified; E11.22 Type 2 diabetes mellitus with diabetic chronic kidney disease; I12.9 Hypertensive chronic kidney disease with stage 1 through stage 4 chronic kidney disease, or unspecified chronic kidney disease; N18.3 Chronic kidney disease, stage 3 (moderate); I48.91 Unspecified atrial fibrillation; M79.7 Fibromyalgia; I67.9 Cerebrovascular disease, unspecified; Z79.4 Long term (current) use of insulin; Z86.73 Personal history of transient ischemic attack (TIA), and cerebral infarction without residual deficits
CPT/HCPCS: 36415; 51701; 70450; 70498; 71010; 80053; 80061; 80069; 81003; 81015; 82550; 82553; 83036; 84439; 84443; 84484; 85025; 85610; 85730; 87088; 92523; 93005; 93010; 93306; 93880; 99285

== ENCOUNTER → 2016-10-28 | Outpatient (CLI) | payer MEDICARE ==
[~2016-10-28] MED LIST changes: +AC325T PO; +AMOX-358 PO; +ASP81CT PO; +BSC10SU PR; +DOCU100C8 PO; +HYDR12.56 PO; +LEVO125T70 PO; +OLME1TAB42 PO; +ONDAN4ODT PO; +POLY17PO2 PO
== END ==
LOC: EMS 02:30
PROVIDERS: ATTEND Emergency Medicine
DX: R53.1 Weakness (principal); R26.2 Difficulty in walking, not elsewhere classified